=== PATIENT | female | born 1995 | race African-American/Black ===

== ENCOUNTER 2016-09-02 17:12 | Emergency (ER) | payer SELFPAY ==
[2016-09-02 17:22] VITALS: BP 135/86
--- NOTE | 2016-09-02 18:36 | UC ---
Throat Pain/Nasal Florecita HPI - HPI Summary HPI Summary: 1) ST, nasal florecita, cough starting about a week ago. Is feeling worse since last night, especially with taste of sputum, RESTREPO, and feeling fatigued. Denies fever, having mild wheezing. 2) Has noticed marked worsening with eczema in recent weeks despite using eucerin, coconut oil, humidifiers and trying to do everything she can to care for her skin. - History of Current Complaint Chief Complaint: UCRespiratory Stated Complaint: RESP ISSUE Time Seen by Provider: 09/02/16 18:01 Hx Obtained From: Patient Hx Last Menstrual Period: 08/06/16 ?: No Onset/Duration: Gradual Onset, Lasting Days Severity: Mild Cough: Productive Associated Signs & Symptoms: Positive: Wheezing, Sinus Discomfort, Nasal Discharge. Negative: Fever, Vomiting, Rash - Allergies/Home Medications Allergies/Adverse Reactions: Allergies Allergy/AdvReac Type Severity Reaction Status Date / Time No Known Allergies Allergy Verified 11/22/12 13:02 PMH/Surg Hx/FS Hx/Imm Hx Endocrine History Of: Denies: Diabetes, Thyroid Disease Cardiovascular History Of: Denies: Cardiac Disorders, Hypertension Respiratory History Of: Reports: Asthma Denies: COPD GI/ History Of: Denies: Ulcer - Surgical History Surgical History: None - Family History Known Family History: Positive: Respiratory Disease - asthma - Social History Lives: Alone Alcohol Use: None Substance Use Type: None Smoking Status (MU): Never Smoked Tobacco Review of Systems Constitutional: Negative Skin: Negative Eyes: Negative ENT: Sore Throat, Nasal Discharge Respiratory: Cough Cardiovascular: Negative Gastrointestinal: Negative Genitourinary: Negative Motor: Negative Neurovascular: Negative Musculoskeletal: Negative Neurological: Negative Psychological: Negative All Other Systems Reviewed And Are Negative: Yes Physical Exam Triage Information Reviewed: Yes Appearance: Well-Appearing, No Pain Distress, Well-Nourished Vital Signs: Initial Vital Signs Temp 98.9 F 09/02/16 17:18 Pulse 76 09/02/16 17:18 Resp 16 09/02/16 17:18 BP 135/86 09/02/16 17:18 Pulse Ox 99 09/02/16 17:18 Vital Signs Reviewed: Yes Eye Exam: Normal Eyes: Positive: Conjunctiva Clear ENT: Positive: Hearing grossly normal, Pharynx normal, Nasal congestion, TMs normal. Negative: Tonsillar swelling, Tonsillar exudate Dental Exam: Normal Neck exam: Normal Neck: Positive: Supple, Nontender, No Lymphadenopathy Respiratory Exam: Normal Respiratory: Positive: Chest non-tender, Lungs clear, Normal breath sounds, No respiratory distress, No accessory muscle use Cardiovascular Exam: Normal Cardiovascular: Positive: RRR, No Murmur Abdominal Exam: Normal Musculoskeletal Exam: Normal Neurological Exam: Normal Neurological: Positive: Alert Psychological Exam: Normal Skin Exam: Other - round scaled excoriated areas on arms, back of neck, shoulders, backs of knees Throat Pain/Nasal Course/Dx - Differential Dx/Diagnosis Provider Diagnoses: URI. sinusitis. eczema Discharge - Discharge Plan Condition: Stable Disposition: HOME Prescriptions: Albuterol HFA INHALER* [Ventolin HFA Inhaler*] 1 - 2 puff INH Q4H PRN #1 mdi PRN Reason: wheeze, cough Azithromycin TAB* [Zithromax TAB*] 250 mg PO SEE INSTRUCTIONS #6 tab Triamcinolone 0.5% CREAM(NF) [Triamcinolone 0.5% CREAM*] 1 applic TOPICAL BID # 30 gm Patient Education Materials: Rhinosinusitis (ED), Eczema (ED) Referrals: Davon Guerrero MD [Medical Doctor] - Additional Instructions: WE DISCUSSED, YOU DO NOT HAVE STRONG SIGNS OF A BACTERIAL ILLNESS AT THIS TIME AND SO DO NOT NEED TO START THIS ANTIBIOTIC. PLEASE TAKE THE ENTIRE COURSE OF ANTIBIOTICS IF YOU DEVELOP FEVER OR HAVE SUDDEN WORSENING AT ANY TIME, OR IF YOU FAIL TO HAVE SOME IMPROVEMENT IN THE NEXT 3 DAYS. You can arrange to follow up with the architect internship listed here for your food allergies and, possibly, your eczema.
== END 2016-09-02 18:31 | disposition home or self-care (01) ==
LOC: UCEAST 17:12
DX: J01.90 Acute sinusitis, unspecified (principal); L30.9 Dermatitis, unspecified; J45.909 Unspecified asthma, uncomplicated
CPT/HCPCS: 99211; G0463

== ENCOUNTER 2018-06-15 09:52 | Emergency (ER) | payer BC, OTHER ==
[2018-06-15 11:03] LABS: Influenza A Molecular POSITIVE (Negative)
--- NOTE | 2018-06-15 11:24 | UC ---
FLU HPI - HPI Summary HPI Summary: 23 yo female presents with body aches, fatigue, sinus congestion, and dry cough for the last 2 days. Has been taking mucinex and sudafed with no relief. 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 Denies fever, chills, SOB, abdominal pain, n/v. She is also requesting a refill on her albuterol inhaler for prn asthma and her kenalog cream for eczema. - History of Current Complaint Chief Complaint: UCRespiratory Stated Complaint: FLU LIKE SYMP Time Seen by Provider: 06/15/18 10:47 Hx Obtained From: Patient Hx Last Menstrual Period: 05/01/18 Onset/Duration: Sudden Onset Severity Currently: Mild Severity Initially: Mild Pain Intensity: 2 Pain Scale Used: 0-10 Numeric - Allergy/Home Medications Allergies/Adverse Reactions: Allergies Allergy/AdvReac Type Severity Reaction Status Date / Time No Known Allergies Allergy Verified 06/15/18 10:42 Home Medications: Home Medications Multivitamins/Minerals TAB* [Theragran/minerals TAB*] 1 tab PO DAILY 06/15/18 [ History Confirmed 06/15/18] PMH/Surg Hx/FS Hx/Imm Hx - Additional Past Medical History Additional PMH: Asthma Eczema - Surgical History Surgical History: None - Family History Known Family History: Positive: Respiratory Disease - asthma - Social History Occupation: Employed Full-time Lives: With Family Alcohol Use: Rare Substance Use Type: None Smoking Status (MU): Never Smoked Tobacco Review of Systems All Other Systems Reviewed And Are Negative: Yes Constitutional: Positive: Fatigue, Other - Body aches Skin: Positive: Other - Eczema Eyes: Positive: Negative ENT: Positive: Nasal Discharge, Sinus Congestion, Sinus Pain/Tenderness Respiratory: Positive: Cough Cardiovascular: Positive: Negative Gastrointestinal: Positive: Negative Neurovascular: Positive: Negative Neurological: Positive: Negative Psychological: Positive: Negative Physical Exam - Summary Physical Exam Summary: GENERAL: NAD. WDWN. No pain distress. SKIN: No rashes, sores, lesions, or open wounds. HEENT: Head: AT/NC Eyes: EOM intact. Conjunctiva clear without inflammation or discharge. Ears: Hearing grossly normal. TMs intact, no bulging, erythema, or edema. Nose: Nasal mucosa pink and moist. NTTP maxillary and frontal sinus. Throat: Posterior oropharynx without exudates, erythema, or tonsillar enlargement. Uvula midline. NECK: Supple. Nontender. No lymphadenopathy. CHEST: CTAB. No r/r/w. No accessory muscle use. Breathing comfortably and in no distress. CV: RRR. Without m/r/g. Pulses intact. Cap refill <2seconds NEURO: Alert. PSYCH: Age appropriate behavior. Triage Information Reviewed: Yes Vital Signs: Initial Vital Signs Temp 98.8 F 06/15/18 10:38 Pulse 92 06/15/18 10:38 Resp 16 06/15/18 10:38 BP 132/75 06/15/18 10:38 Pulse Ox 100 06/15/18 10:38 Laboratory Tests 06/15/18 10:59 Influenza A (Rapid) Positive A Vital Signs Reviewed: Yes Flu Course/Dx - Course Course Of Treatment: POC flu positive. Rx for tamiflu. According to [facility] policy - employees are required to be off of work for 1 week from the onset of flu symptoms and positive flu test, therefore note provided. - Differential Dx/Diagnosis Provider Diagnosis: Influenza Discharge - Sign-Out/Discharge Documenting (check all that apply): Patient Departure All imaging exams completed and their final reports reviewed: No Studies - Discharge Plan Condition: Stable Disposition: HOME Prescriptions: Albuterol HFA INHALER* [Ventolin HFA Inhaler*] 1 puff INH Q6H PRN #1 mdi PRN Reason: Sob/Wheezing Oseltamivir CAP* [Tamiflu CAP*] 75 mg PO BID #10 cap Triamcinolone 0.5% CREAM(NF) [Triamcinolone 0.5% CREAM*] 1 applic TOPICAL BID # 1 tube Patient Education Materials: Influenza (DC) Forms: *Work Release Referrals: Nydia Rivera MD [Primary Care Provider] - Additional Instructions: If you develop a fever, shortness of breath, chest pain, new or worsening symptoms - please call your PCP or go to the ED. Rest and drink plenty of fluids! May take tylenol/ibuprofen for any fever or discomfort - Billing Disposition and Condition Condition: STABLE Disposition: Home - Attestation Statements Provider Attestation: Per institutional requirements, I have reviewed the chart, however, I was not consulted specifically or made aware of this patient by the midlevel provider. I did not personally evaluate, interact with , or disposition this patient.
[2018-06-15 12:14] VITALS: BP 129/67
== END 2018-06-15 11:35 | disposition home or self-care (01) ==
LOC: UCEAST 09:52
DX: J10.1 Influenza due to other identified influenza virus with other respiratory manifestations (principal)
CPT/HCPCS: 99212; G0463

== ENCOUNTER 2018-08-14 17:59 | Inpatient (IN) | payer BC ==
--- OUTSIDE RECORDS SUMMARY | 2018-08-14 18:07 | XMS REPORT | Continuity of Care Document ---
:1995 External Reference #:[id number] Author Name Qing Hunter Care Team Providers Name Role Phone Vonnie Bunch MD Primary Care Physician Unavailable Payers Date Identification Numbers Payment Provider Subscriber Policy Number: [id number] 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 Tobacco Use Start: Unknown Never Smoked Cigarettes ETOH Use Denies alcohol use Recreational Drug Use Denies Drug Use Tobacco Use Start: Unknown Patient has never smoked Smoking Status Reviewed: 08/04/18 Patient has never smoked Exercise Type/Frequency Exercises regularly Seat Belt/Car Seat Always uses seat belt Currently Active Patient is currently sexually active Contraceptive Methods None STD's No STD History Allergies, Adverse Reactions, Alerts Description No Known Drug Allergies Medications Medication Date Status Form Strength Qnty SIG Indications Ordering Provider Sertraline HCL Active Unknown Loratadine Active Unknown Immunizations Description No Information Available Vital Signs Date Vital Result Comment 08/04/2018 1:19pm Last Menstrual Period [id number] 0 Parity 0 Results Description No Information Available Procedures Description No Information Available Encounters Description No Information Available Plan of Treatment No Information Available
--- NOTE | 2018-08-14 18:44 | ED ---
Psychiatric Complaint - History Of Current Complaint Chief Complaint: EDMentalHealth Time Seen by Provider: 08/14/18 18:41 Hx Last Menstrual Period: 05/01/18 - Allergies/Home Medications Allergies/Adverse Reactions: Allergies Allergy/AdvReac Type Severity Reaction Status Date / Time No Known Allergies Allergy Verified 06/15/18 10:42 PMH/Surg Hx/FS Hx/Imm Hx Endocrine/Hematology History: Denies: Hx Diabetes, Hx Thyroid Disease Cardiovascular History: Denies: Hx Hypertension Respiratory History: Reports: Hx Asthma Denies: Hx Chronic Obstructive Pulmonary Disease (COPD) GI History: Denies: Hx Ulcer - Cancer History Cancer Type, Location and Year: anemia Infectious Disease History: No Infectious Disease History: Denies: Hx Clostridium Difficile, Hx Hepatitis, Hx Human Immunodeficiency Virus (HIV), Hx of Known/Suspected MRSA, Hx Shingles, Hx Tuberculosis, Hx Known/ Suspected VRE, Hx Known/Suspected VRSA, History Other Infectious Disease, Traveled Outside the [place] in Last 30 Days - Family History Known Family History: Positive: Respiratory Disease - asthma - Social History Alcohol Use: Rare Substance Use Type: Reports: None Smoking Status (MU): Never Smoked Tobacco Physical Exam Vital Signs On Initial Exam: Initial Vitals Temp Pulse Resp BP Pulse Ox 98.8 F 93 18 127/77 100 08/14/18 18:00 08/14/18 18:00 08/14/18 18:00 08/14/18 18:00 08/14/18 18:00 Diagnostics - Vital Signs Vital Signs Temp Pulse Resp BP Pulse Ox 08/14/18 18:00 98.8 F 93 18 127/77 100 - Laboratory Lab Statement: Any lab studies that have been ordered have been reviewed, and results considered in the medical decision making process. Discharge - Discharge Plan Referrals: Nydia Rivera MD [Primary Care Provider] -
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
[2018-08-15] MEDS ORDERED: Al Hydrox/Mg Hydrox/Simet LIQ* 30 ML UDC PO PRN (06:11)
[2018-08-15] MEDS ORDERED: Acetaminophen TAB* 325 MG PO PRN (06:11)
[2018-08-15] MEDS: Vitamin THERAPEUTIC TAB PO SCH (09:15)
[2018-08-15 20:49] LABS: Urine Appearance Clear; Urine Bacteria Absent (Absent); Urine Bilirubin Negative (Negative); Urine Blood 1+ (Negative); Urine Color Yellow; Urine Glucose Negative (Negative); Urine Ketones Trace (Negative); Urine Nitrite Negative (Negative); Urine Protein Negative (Negative); Urine Red Blood Cell 1+(3-5/hpf) (Absent); Urine Specific Gravity 1.016 (1.010-1.030); Urine Urobilinogen Negative (Negative); Urine White Blood Cell Trace(0-5/hpf) (Absent)
[2018-08-15] MEDS: QUEtiapine TAB* 25 MG PO SCH (21:58)
[2018-08-15] MEDS: Lithium Carbonate TAB* 300 MG PO SCH (22:01)
--- NOTE | 2018-08-16 02:49 | HP ---
HISTORY AND PHYSICAL: DATE OF ADMISSION: 08/15/18 IDENTIFYING DATA: Maria Luz is a 23-year-old , employed, -[place] female who was referred to this hospital by her primary care physician, Dr. Bunch, for treatment of suad and she was admitted on voluntary status. CHIEF COMPLAINT: "I had been feeling manic!" HISTORY OF PRESENT ILLNESS: The patient relates having a history of depression and anxiety. She was started on sertraline [address] Bunch on . Dose was increased to 75 mg daily on 08/10/18. The patient reports that starting last she started experiencing symptoms of insomnia. She estimates going about 32 hours without sleep, yet she felt amazing and productive. She did things there were out of character such as inviting people to her house, smoking more marijuana than she normally does, she thought about buying stuff for her cat on the internet for hundreds of dollars, but was able to catch herself before actually completing any purchase. She states she felt hypersexual and she had strong sexual urges for a male friend of hers and her 's. She was at home, cleaning yesterday, and her whom she is from and who is in [place] sent her a screenshot of symptoms of suad and she realized that she had all the symptoms. She drove herself to her primary care physician, Dr. Bunch, who was not comfortable treating her as an outpatient for suad and instructed her to coming to the hospital for treatment. The patient describes stressors of marital issues. Her is currently in [place] with his family addressing his own mental health issues. The patient is unhappy in her marriage, she is somewhat resentful that she is the only breadwinner and that her has not been able to share the financial burden because he is not functional. The patient also describes disappointment that she was discharged from [employer], less the 3 months after enlisting, because of a stress fracture. She had dreamt for years of making a career in the [employer]. REVIEW OF PSYCHIATRIC SYMPTOMS: The patient endorses a history of depressive episodes lasting weeks to months at a time, with sad mood, decreased interest, hypersomnia, decreased appetite, feelings of guilt, hopelessness, helplessness, and worthlessness, impaired attention and concentration, and difficulty functioning at work, excessive worrying, irritability, muscle tension and recurring panic attacks. She denies obsessive thoughts, compulsive rituals, symptoms of eating disorder, previous diagnoses of ADHD or learning disorder. The patient denies any history of trauma or PTSD symptoms. She reports suffering from night terrors. PAST PSYCHIATRIC HISTORY: This is her first inpatient psychiatric admission. The patient saw therapist, Ness Steward Psy.D. for about a month, from May to June 2018, before she discontinued because she did not find the therapist was a good match. She is currently on a waiting list to see Dr. Thien Johnson. SUICIDE/HOMICIDE HISTORY: The patient denies any history of self injury. She denies previous rubens suicide attempt, but reported that last year, in the spring, she was very depressed and she had thoughts of driving her car into an electric poll before pulling over and experiencing a panic attack. LEGAL HISTORY: The patient denies. PAST MEDICAL HISTORY: The patient denies any active medical problems, any history of head trauma with loss of consciousness, seizures or surgeries. She is [facility] at [facility] by Dr. Bunch. Menarche was at age 10. FAMILY HISTORY: Family history of bipolar disorder in patient's maternal half- sister. The patient's mother suffered from depression and was addicted to crack cocaine and heroin and in her 40s. The patient is not aware of any family history of completed suicide. SUBSTANCE ABUSE HISTORY: The patient admits to smoking small amount of marijuana daily. She denies the use of alcohol, other illicit drugs or misuse of prescribed medication. PERSONAL AND SOCIAL HISTORY: The patient was born in [place], [place]. She is the third of 6 half-siblings (all had different fathers). Her mother was actively using substance and left her and her siblings in the care of their maternal grandmother. The patient was placed in foster care at age 2 and was formally adopted at age 5. The adoptive home was a difficult environment because of other adopted siblings with special needs . She graduated from high school. She attended a [employer] in [place] for 3 years, working towards a major in Biology. She dropped out after her lacho year because she had her first depressive episode and did not really like the environment. The patient in November 2016, and she enlisted in the [employer] on 02/25/17. During her initial training, she suffered a stress fracture in her left knee and was discharged on 05/07/17, shattering her lifelong dream of making a career in the [employer]. 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 She has no children. She reports being unhappy in her current marriage. The patient describes herself as agnostic. She reports struggling financially as the sole bread winner. She has her own apartment in [place], [place]. MENTAL STATUS EXAMINATION: Finds a tall, averagely built 23-year-old - [place] female, with her hair cut short, with rimmed glasses and several ear studs. She is well groomed, casually dressed. She makes good eye contact. She presents as pleasant and cooperative. Speech is pressured. Her affect is expansive. Mood is euphoric. Thought process is over-inclusive with some evidence of grandiosity. She avidly denies suicidal or homicidal ideation or urges to self-mutilate and she contracts for safety. Insight and judgment are impaired. Impulse control fair in this setting. She is alert. She is oriented to time, place, and person. Attention, memory, and concentration are all fair. Fund of knowledge is adequate. Intelligence is estimated to be in the normal average range. REVIEW OF MEDICAL SYMPTOMS: Negative. PHYSICAL EXAMINATION GENERAL: The patient is an averagely built 23-year-old black woman, who does not appear to be in any acute physical distress. He is alert and oriented x3. VITAL SIGNS: At admission blood pressure is 127/77, pulse is 93, respirations 18, temp 98.8. SKIN: Skin texture, turgor, and pigmentation are within normal limits. HEENT: Head atraumatic, normocephalic, symmetrical. Eyes: PERRLA. Tympanic membranes intact. Sclerae nonicteric. Conjunctivae clear. NECK: Trachea midline, freely mobile. No cervical lymphadenopathy. No nuchal rigidity. LUNGS: Clear to auscultation bilaterally. HEART: Regular rate and rhythm. S1 and S2. No murmur, gallops or rubs. BREAST EXAM: Not performed. ABDOMEN: Soft, nontender. No masses, organomegaly or rebound tenderness. No scars noted. Active bowel sounds in all 4 quadrants. EXTREMITIES: No pain or limitation in the range of movement. Pulses are equal and adequate in all 4 extremities. NEUROLOGIC: Cranial nerves II through XII are intact. Cerebellar function is intact. Muscle strength grade is 5/5 in all 4 extremities. GENITAL EXAM: Not performed. RECTAL EXAM: Not performed. STRUCTURAL EXAM: The patient was examined in both supine and upright positions. No gross AP or lateral asymmetry. Gait and movement are within normal limits. DIAGNOSTIC STUDIES/LAB DATA: Labs are pending. SUMMARY: First inpatient psychiatric admission for this 23-year-old female with history of depression and anxiety, no current outpatient therapy, who started experiencing manic symptoms after her sertraline was increased recently. Her medical history is unremarkable. There is a family history of bipolar 2 in the patient's half-sister and depression and addiction to cocaine and heroin in the patient's biological mother. No family history of completed suicide. The patient describes stressors of marital and financial difficulties. DIAGNOSTIC IMPRESSIONS: 1. Bipolar 1 disorder, current episode manic, severe, without psychotic features. 2. Generalized anxiety disorder. TREATMENT PLAN: Admit to mental health unit, 15-minute checks, full code status. Legal status is voluntary. Initiate comprehensive milieu, individual and group psychotherapeutic supports. The patient gave informed consent for trial of lithium 300 mg b.i.d. and Seroquel 50 mg at bedtime to target her insomnia and manic symptoms after hearing of the indications, risks, benefits, and alternatives. The patient will also be asked to complete psychological testing while admitted. Discharge planning will involve connecting her to outpatient psychiatric providers to provide therapy and to manage her medications [id number]/[facility] #: [id number] MTDD
[2018-08-16] MEDS: Lithium Carbonate TAB* 300 MG PO SCH ×2 (09:12→22:31)
[2018-08-16] MEDS: Vitamin THERAPEUTIC TAB PO SCH (09:12)
[2018-08-16] MEDS ORDERED: LORazepam TAB(*) 1 MG ONE (12:13)
[2018-08-16] MEDS ORDERED: LORazepam TAB(*) 1 MG PO ONE (13:00)
[2018-08-16] MEDS: QUEtiapine TAB* 25 MG PO SCH (22:31)
[2018-08-17] MEDS: Lithium Carbonate TAB* 300 MG PO SCH ×2 (08:50→21:28)
[2018-08-17] MEDS: Vitamin THERAPEUTIC TAB PO SCH (08:50)
--- NOTE | 2018-08-17 16:53 | PN ---
Subjective - Subjective Date of Service: 08/17/18 Service Type: 06217 Hosp care 25 min moderate complexity Subjective: Patient presents with rapid speech and flight of ideas, somewhat grandiose. She states she experienced hallucinations and paralysis after first dose of lithium. She further describes paralysis as feeling as though a woman was lying on her. She states that lorazepam was helpful with above. She denies events from subsequent doses of lithium. She states sensing pressure behind eyes when feeling depressed. She describes conflict about continuing relationship with . She expresses motivation to pursue discharge as soon as possible. Encouraged to complete MMPI. Objective - General Observations Appearance: Neat Appears Stated Age: Yes Stature: WNL Posture: WNL Eye Contact: Average Behavior/Activity: Accelerated - Interaction Observations Attitude Towards Examiner: Cooperative, Anxious Stated Mood: Elevated Speech Pattern/Tone: Clear, Normal Volume, Pressured Thought Process: Filght of Ideas, Racing Perception: WNL Thought Content: Grandiose Hallucination Type: Denies Delusion Type: Denies - Cognitive Function Orientation: A&O x 4 Level of Consciousness: Alert Cognition: WNL Estimated Intelligence: Normal Insight: WNL Judgment Within Normal Limits: Yes Ability to Make Reasonable Decisions: Mildly Impaired - Medication Compliance Cooperative with Inpatient Medication Regimen: Yes - Group Participation Participates in Group Activities: Yes Assessment - Assessment Merits Inpatient Hospitalization: For Immediate Safety, For Stabilization, Diagnosis Determination, Consolidate Improvements, For Discharge Planning Inpatient DSM-V Dx: F31.61 Clinical Impression: 23yo female with chaotic early morning who presented to ED with suad after initial trial of SSRI. She merits hospitalization for immediate safety and stabilization. Plan - Plan Treatment Plan: Name: CHRIS BYRD Birthdate: 1995 [id number] continue acute intensive psychiatric treatment. continue current medications. awaiting psychological testing and laboratory data. Medications: Current Medications Acetaminophen (Tylenol Tab*) 650 mg PO Q4H PRN PRN Reason: PAIN or TEMP > 101 F Last Admin: 08/15/18 20:32 Dose: 650 mg Al Hydrox/Mg Hydrox/Simethicone (Maalox Plus*) 30 ml PO Q4H PRN PRN Reason: INDIGESTION Porum Carbonate (Porum Carbonate Tab*) 300 mg PO BID DANIEL Last Admin: 08/17/18 08:50 Dose: 300 mg Multivitamins (Theragran Tab*) 1 tab PO DAILY [facility] Last Admin: 08/17/18 08:50 Dose: 1 tab Quetiapine Fumarate (Seroquel Tab*) 50 mg PO BEDTIME [facility] Last Admin: 08/16/18 22:31 Dose: 50 mg - Discharge Plan Discharge Plan: Inpatient Hospitalization
[2018-08-17] MEDS: QUEtiapine TAB* 25 MG PO SCH (21:29)
[2018-08-18 07:41] VITALS: BP 118/73
[2018-08-18] MEDS: Vitamin THERAPEUTIC TAB PO SCH (08:48)
[2018-08-18] MEDS: Lithium Carbonate TAB* 300 MG PO SCH (08:48)
--- NOTE | 2018-08-18 15:05 | DCNOTE ---
Subjective - Subjective Service Types: 79507 Hosp FL Day Mgmt simple under 30 min Discharge Date: 08/18/18 Subjective: Patient reports she woke in the middle of the night due to familiarity with [facility] staff. She states she was able to return to sleep without difficulty. She expressed desire to be discharged today. She is well related and denies Si or passive wish. She reports feeling relieved to have understanding of diagnosis of bipolar disorder. Objective - Appearance Appearance: Well Developed/Nourished Dysmorphic Features: No Hygiene: Normal Grooming: Well Kept - Behavior Psychomotor Activities: Normal Exhibits Abnormal Movement: No - Attitude and Relatedness Attitude and Relatedness: Cooperative Eye Contact: Good - Speech Quality: Unpressured Latencies: Normal Quantity: Appropriate - Mood Patient's Decription of Mood: "Good" - Affect Observed Affect: Good Affect Consistent with: Euthymia - Thought Process Patient's Thought Process: Coherent, Goal Directed Thought Content: No Passive Wish, No Suicidal Planning, No Homicidal Ideation, No Paranoid Ideation - Sensorium Experiencing Hallucinations: No, Sensorium is Clear Type of Hallucinations: Visual: No, Auditory: No, Command: No - Level of Consciousness Level of Consciousness: Alert Orientation: Yes Intact, Yes Orientated to Time, Yes Orientated to Place, Yes Orientated to Person - Impulse Control Impulse Control: Intact - Insight and Judgement Insight and Judgement: Good - Group Participation Particating in Group Activities: Yes - Medication Management Medication Management Adherence: Yes DC Assessment - Assessment Clinical Impression: 23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 She has tolerated onset of mood stabilizer and small dose of antipsychotic for sleep and stabilized in this setting. Merits Inpatient Hospitalization: No Clear for Discharge: Adequate Clinical Respons, Acceptable Safety Profile Inpatient DSM-V Dx: F31.61 Discharge Planning - Discharge Planning Discharge Plan: Outpatient Follow Up Outpatient Program: Private Clinician(s) Recommendations for Continuing Care: Medication Management, Psychotherapy, Routine Metabolic Monitoring, Therapeutic Drug Levels, Primary Care Followup Medications: Current Medications Princess Anne Carbonate (Princess Anne Carbonate Tab*) 300 mg PO BID [facility] Last Admin: 08/18/18 08:48 Dose: 300 mg Quetiapine Fumarate (Seroquel Tab*) 50 mg PO BEDTIME [facility] Last Admin: 08/17/18 21:29 Dose: 50 mg Discharge Planning: Prescriptions provided for discharge [x] Yes [] No Follow up care details as per social work arrangements: [facility] Thien Johnson, Trena Patient response to discharge plan: [x] eager for discharge [x] agreeable with discharge plan [] ambivalent about discharge [] disagrees with discharge today
--- NOTE | 2018-08-19 12:00 | CONS ---
PSYCHOLOGICAL REPORT: DATE OF CONSULTATION: 08/17/18 PROCEDURE CODE: [id number]. REASON FOR REFERRAL: Maria Luz was referred for personality testing secondary to concerns regarding possible manic or hypomanic episode with secondary concerns regarding presence and severity of depression. TEST ADMINISTERED: Maria Luz completed the [place] Multiphasic Personality Interventory-2 (MMPI-2), and was given individual feedback and was also seen in the context of cognitive behavioral group psychotherapy on 2 occasions led by this underwriter solicitation director. RELEVANT HISTORY: Maria Luz was encouraged to seek inpatient treatment by her primary care physician after presenting there with symptoms consistent with suad. She has historically been treated for depression and anxiety and had been started on sertraline [address] Bunch last month. It had recently been increased to daily titration of 75 mg last week. The patient describes beginning prior to admission, she began experiencing symptoms of insomnia, describing going some 32 hours without sleep but felt productive and had expansive mood. She was doing things out of character and her who is currently separate from her and living in [place] encouraged her to seek treatment for hypomania. Maria Luz describes other characteristic symptoms of hypomania such as an interest in buying items for her cat, which would have numbered in hundreds of dollars if she actually complete the purchases but did not do so and also describes increased sex drive. Maria Luz describes historical difficulties with depression dating back few years ago, where she had difficulty completing undergraduate studies and eventually dropped out and listed in the [employer] for period of time. She experienced knee injury, which precipitated her discharge from the [employer] and then eventually her current . Maria Luz describes being quite unhappy in her marriage, describing her 's tumultuous career interest and developments which have not panned out to productive career. He currently is living in [place] with his family of origin and Maria Luz describes ambivalence about what to do about their marriage. 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 Although, she describes good work adjustment, she is concerned about working the cook night as it impairs sleep hygiene at times. Maria Luz describes various interest perhaps in between the college to complete her degree and particularly discussed prospects of going into psychology or some form of counseling with this underwriter solicitation director. Regardless, Maria Luz currently describes prosocial goals and interest with her most acute sense of duress emanating from her ambivalence about how to deal with her current marital status. She feels a sense of guilt about not wanting to remain but describes poor marital adjustment and dissatisfaction with the prospects of trying to improve upon her relationship with her currently. Maria Luz was able to discuss prospects of bipolar 1 disorder with good insight with this underwriter solicitation director, expressing concerns that she could experience increasing symptoms that is leading to more persisting difficulties. This underwriter solicitation director discussed the importance of early treatment of the disorder so as to avoid such bad outcome. TEST RESULTS: Maria Luz's current MMPI protocol supports concerns relating to bipolar 1 disorder. She scores relatively low scores on the depressive scale and scores very highly on the hypomania scale (T=80) as well as also experiencing high score on the schizophrenia scale (T=90). As Maria Luz is clear and coherent in conversation, although may have higher than volume level speech currently, there are no concerns regarding psychotic range of function. She is able to discuss current symptoms in a clear and concise fashion and also asked appropriate questions and expresses concerns regarding possible progression of symptomatology. Her discussion of expansive mood and hypersexuality clearly are felt to be symptomatic of hypomanic experience and not typical of her baseline. IMPRESSIONS AND RECOMMENDATIONS: There are ongoing concerns regarding the affect of instability with Maria Luz, especially secondary to her historical difficulties with depression. Her current symptoms may have been exacerbated by attempts to treat depression with an increase in serotonin as a concern. Maria Luz describes good insight regarding her feelings and historical difficulties in the context of her marriage and impresses as beginning to formulate a plan forward from here. She describes concerns regarding the possibility of developing more persisting and severe symptoms with good insight and discusses how the experience of suad can be quite seductive at times in terms of feeling positive energy and good about herself and her prospects. This was discussed in the context of paradoxical illness where people are reluctant to treat symptoms secondary to the periodic euphoria that suad can bring. Presently, Maria Luz presents with good affect and is well related to staff and peers. She describes benefitting from programming despite her initial frustrations as she was initially hospitalized over the course of her weekend where she describes not receiving much individualized attention. However, she quickly consolidated with discussion with professional staff and expressed safety and cessation of significant symptomatology. Diagnostic impression supports bipolar 1 disorder, current episode manic, severe, without psychotic features. Maria Luz jeffery as good candidate to engage in recommended outpatient treatment both in terms of compliance with recommended medication as well as attending counseling sessions. [id number]/[facility] #: [id number] ROSE
--- NOTE | 2018-08-19 23:44 | DS ---
CC: [facility]; [facility]; Thien Johnson PSY.D * DISCHARGE SUMMARY: DATE OF ADMISSION: 08/15/18 DATE OF DISCHARGE: 08/18/18 SUPERVISING PSYCHIATRIST: Jem Wooten MD* (dictated by DAYO Dominguez) . DIAGNOSIS: Bipolar I disorder, most recent episode manic, severe, without psychotic features. CONDITION AT THE TIME OF DISCHARGE: Improved. The patient is calm and had behavioral control. She reports much improvement in mood. She denies hypomania. She has been safe and in behavioral control. She tolerated current medications. She is being discharged to home and expresses agreement to be discharged today. She denies SI or passive wish. She reports sleeping well. She states that she awoke in the middle of the night due to with nocturnal staff. She states she was able to return to sleep without difficulty. She reports a sense of feeling relieved to have an understanding of diagnosis of bipolar disorder. MENTAL STATUS EXAM: The patient is a 23-year-old black female with short dark hair, large rimmed glasses. She is well groomed, casually dressed in her own clothing. She is pleasant and cooperative. The patient is alert and oriented x3. Eye contact is good. Speech is normal in rate, rhythm, and volume, spontaneous. Mood is euthymic with congruent affect. No abnormal psychomotor activity noted. Thought process is logical, goal directed, and coherent. Thought content is negative for SI, HI or passive wish. She denies auditory or visual hallucinations. She denies delusions and there are no perceptual disturbances noted. Insight and judgement are good. Fund of knowledge is excellent. INSTRUCTIONS GIVEN TO PATIENT: A. Medications: 1. [place] carbonate 300 mg p.o. b.i.d. 2. Quetiapine 50 mg p.o. nightly. B. Diet: Regular. C. Activity: As tolerated. Tobacco cessation is not applicable. Pending labs. [place] level per primary care doctor. D. Followup care: The patient was referred to [facility] for an intake on 08/21/18, at 10:30 a.m. She is awaiting openings with psychologist, Thien Johnson. She will return to primary care provider, Dr. Bunch at [facility], and has an appointment on August 28. E. Substance use followup is not applicable. HOSPITAL COURSE-PART A: Reason for admission: The patient presented to the emergency department, self-referred due to suad after initial trial of an antidepressant. HISTORY OF PRESENT ILLNESS: The patient relates having a history of depression and anxiety. She was started on sertraline [address] Bunch on 06/29/18. The dose was increased to 75 mg on 08/10/18. The patient reports that the following day, she started experiencing symptoms of insomnia. She estimated going about 32 hours without sleep, yet felt amazing and productive. She did things that were out of character such as inviting people to her house, smoking marijuana, and nearly impulsively spending hundreds of dollars before actually completing the purchase. She has felt hypersexual and strong sexual urges for a male friend of hers and her 's. She was at home, cleaning yesterday, and her whom she is from and who is in [place] sent her a screen shot of symptoms of suad and she realized that she had all the symptoms. She drove herself to her primary care physician, Dr. Bunch, and was encouraged to come to the hospital for evaluation. The patient describes stressors of marital issues. Her who is currently in [place] with his family addressing his own mental health issues. The patient is unhappy in her marriage. She is somewhat resentful that she is the only breadwinner and that her has not been able to share the financial burden. She also described disappointment that she was discharged from the [employer] because of a stress fracture, distorted her dream of having a career in the [employer]. HOSPITAL COURSE-PART B: Psychiatric treatment rendered. The patient was admitted to adult behavioral services unit on voluntary status. Code status is full. She was placed on 15-minute checks for safety. She was encouraged to participate in supportive milieu, individual sessions with staff and psychoeducational groups. She gave informed consent for a trial of lithium 300 mg b.i.d. and quetiapine 50 mg at bedtime. We discontinued sertraline. According to the staff, the patient was active and distractible. She was pleasant and cooperative. She was noted to have mood lability at times. After the first dose of lithium, the patient reported feeling paralyzed. She further described this as feeling as though a woman was lying on top of her and she also experienced hallucinations. She states the lorazepam was helpful with the above and denied events from the frequent doses of lithium. She expressed motivation to pursue discharge and was encouraged to complete the MMPI, which she did. According to psychologist, Dr. Romeo Carpenter, the MMPI endorsed hypomania and was consistent with presentation. Please see detailed report by Dr. Romeo Carpenter. On day of discharge, the patient reported much improved sleep through the night before. She presented with less pressured speech and was more organized. She denied SI, HI or . Her impulse control was improved. She initially requested to be discharged the following day, but later in the day, she inquired about leaving. The patient had not received blood work due to labs scheduled on her. She declined offer to remain 1 more night to obtain fasting labs and lithium level the next morning. As her lithium dose is a starting dose of 300 mg, it would be appropriate to wait to see if the dose is changed prior to obtaining lithium level. The patient was eager to be discharged in order to pursue outpatient care and to return to employment. We discussed the effects of shift work on bipolar disorder. The patient reports short-term goal of working overnight shift in the hopes of other educational goals she has. I think that Maria Luz will do very well on an outpatient setting. She was encouraged to call with any questions or concerns after discharge. DANK GAGE, DAYO [id number]/CPS #: [id number] ROSE
== END 2018-08-18 15:48 | disposition home or self-care (01) | DRG 753 ==
LOC: ED 17:59 → BSU 08-15 05:51
PROVIDERS: ADMIT Psychiatry & Neurology Psychiatry; ATTEND Psychiatry & Neurology Psychiatry
DX: F31.13 Bipolar disorder, current episode manic without psychotic features, severe (principal); F41.1 Generalized anxiety disorder; Z81.8 Family history of other mental and behavioral disorders; Z81.3 Family history of other psychoactive substance abuse and dependence
CPT/HCPCS: 81003; 81015; 87086; 99222; 99231; 99238; 99284; A9270-GY

== ENCOUNTER 2018-09-03 02:24 | Emergency (ER) | payer BC ==
--- NOTE | 2018-09-03 03:08 | ED ---
Psychiatric Complaint - HPI Summary HPI Summary: A 23 y/o female presents to [facility] with a chief complaint of having difficulty sleeping for the past three days. She also reports right redness due to allergies. She claims that today at 01:45 she felt depressed with racing thoughts and an overwhelming feeling of dread. She started a second job this week and has only slept 11 hours in the past three days. She believes that she would not be able to sleep if given the chance. On 08/14/18 the patient came to the ED, was admitted on 08/15/18 and discharged 08/18/18 with a diagnosis of Bipolar 1 disorder. The patient reports that she was showing signs of suad. Since being discharged she has been taking Valmeyer and Seroquel. She reports taking half of her dosage of Seroquel. She has been on antidepressants for two months. For her allergies she takes Zyrtec and eye drops. - History Of Current Complaint Chief Complaint: EDMentalHealth Time Seen by Provider: 09/03/18 03:03 Hx Obtained From: Patient Hx Last Menstrual Period: 05/01/18 Onset/Duration: Sudden Onset Timing: Constant Severity Initially: Mild Severity Currently: Mild Aggravating Factor(s): Nothing Alleviating Factor(s): Nothing Associated Signs And Symptoms: Positive: Sleep Disturbance Has Suicidal: Denies: Thoughts Has Homicidal: Denies: Thoughts - Allergies/Home Medications Allergies/Adverse Reactions: Allergies Allergy/AdvReac Type Severity Reaction Status Date / Time No Known Allergies Allergy Verified 06/15/18 10:42 PMH/Surg Hx/FS Hx/Imm Hx Endocrine/Hematology History: Denies: Hx Diabetes, Hx Thyroid Disease Cardiovascular History: Denies: Hx Hypertension Respiratory History: Reports: Hx Asthma Denies: Hx Chronic Obstructive Pulmonary Disease (COPD) GI History: Denies: Hx Ulcer Sensory History: Reports: Hx Contacts or Glasses Denies: Hx Legally Blind, Hx Deafness, Hx Hearing Aid Opthamlomology History: Reports: Hx Contacts or Glasses Denies: Hx Legally Blind Psychiatric History: Denies: Hx Eating Disorder, Hx of Violent Episodes Against Others - Cancer History Cancer Type, Location and Year: anemia - Surgical History Surgery Procedure, Year, and Place: none Infectious Disease History: No Infectious Disease History: Denies: Hx Clostridium Difficile, Hx Hepatitis, Hx Human Immunodeficiency Virus (HIV), Hx of Known/Suspected MRSA, Hx Shingles, Hx Tuberculosis, Hx Known/ Suspected VRE, Hx Known/Suspected VRSA, History Other Infectious Disease, Traveled Outside the [place] in Last 30 Days - Family History Known Family History: Positive: Respiratory Disease - asthma - Social History Alcohol Use: Rare Substance Use Type: Reports: None Smoking Status (MU): Never Smoked Tobacco Review of Systems Negative: Fever Positive: Erythema Psychological: Other - positive: difficulty focusing and sleeping Positive: Depressed, Other - negative: SI/HI All Other Systems Reviewed And Are Negative: Yes Physical Exam - Summary Physical Exam Summary: VITAL SIGNS: Reviewed. GENERAL: Patient is a well-developed and nourished FEMALE who is lying comfortable in the stretcher. Patient is not in any acute respiratory distress. HEAD AND FACE: No signs of trauma. No ecchymosis, hematomas or skull depressions. No sinus tenderness. EYES: PERRLA, EOMI x 2, mild right conjunctival injection, no nystagmus. EARS: Hearing grossly intact. Ear canals and tympanic membranes are within normal limits. MOUTH: Oropharynx within normal limits. NECK: Supple, trachea is midline, no adenopathy, no JVD, no carotid bruit, no c- spine tenderness, neck with full ROM CHEST: Symmetric, no tenderness at palpation LUNGS: Clear to auscultation bilaterally. No wheezing or crackles. CVS: Regular rate and rhythm, S1 and S2 present, no murmurs or gallops appreciated. ABDOMEN: Soft, non-tender. No signs of distention. No rebound no guarding, and no masses palpated. Bowel sounds are normal. EXTREMITIES: FROM in all major joints, no edema, no cyanosis or clubbing. NEURO: Alert and oriented x 3. No acute neurological deficits. Speech is normal and follows commands. SKIN: Dry and warm Psych: not suicidal or homicidal, seems somewhat impulsive. Triage Information Reviewed: Yes Vital Signs On Initial Exam: Initial Vitals Temp Pulse Resp BP Pulse Ox 98.6 F 68 16 145/94 100 09/03/18 02:30 09/03/18 02:30 09/03/18 02:30 09/03/18 02:30 09/03/18 02:30 Vital Signs Reviewed: Yes Diagnostics - Vital Signs Vital Signs Temp Pulse Resp BP Pulse Ox 09/03/18 02:30 98.6 F 68 16 145/94 100 - Laboratory Result Diagrams: 09/03/18 03:45 09/03/18 03:45 Lab Statement: Any lab studies that have been ordered have been reviewed, and results considered in the medical decision making process. Course/Dx - Course Course Of Treatment: A 23 y/o female presents to [facility] with a chief complaint of having difficulty sleeping for the past three days. She also reports right redness due to allergies. The physical exam revealed a mild right conjunctival injection. She is not suicidal or homicidal but seems somewhat impulsive. In the ED course the patient was given Xanax PO. Bloodwork, chemistries, urines and toxicology. Valmeyer 0.58 at 03:45. The patient will be signed out to Dr. Gleason upon shift change pending MHE. - Differential Dx/Clinical Impression Provider Diagnosis: Bipolar disorder - Physician Notifications Discussed Care Of Patient With: Riaz Estrada Time Discussed With Above Provider: 04:50 Instructed by Provider To: Other - recommends keeping the patient in the ED and that Dr. Aleman see the patient in the morning. Discharge - Sign-Out/Discharge Documenting (check all that apply): Sign-Out Patient Signing out patient TO: Salo Gleason - pending MHE Patient Received Moderate/Deep Sedation with Procedure: No - Discharge Plan Condition: Stable Referrals: Vonnie Bunch DO [Primary Care Provider] - - Billing Disposition and Condition Condition: STABLE - Attestation Statements Document Initiated by Konstantinibe: Yes Documenting Scribe: Thien Trujillo Provider For Whom Gayathri is Documenting (Include Credential): Jeremy Evangelista MD Scribe Attestation: Thien Robles scribed for Jeremy Evangelista MD on 09/03/18 at 0603. Scribe Documentation Reviewed: Yes Provider Attestation: The documentation as recorded by the Thien guerrero accurately reflects the service I personally performed and the decisions made by me, Jeremy Evangelista MD Status of Scribe Document: Viewed
[2018-09-03] MEDS ORDERED: ALPRAZolam TAB* 0.5 MG PO ONE (03:24)
[2018-09-03 04:00] LABS: ABS Basophils 0.1 10^3/ul (0-0.2); ABS Eosinophils 0.2 10^3/ul (0-0.6); ABS Lymphocytes 1.4 10^3/ul (1.0-4.8); ABS Monocytes 0.5 10^3/ul (0-0.8); ABS Neutrophils 4.7 10^3/ul (1.5-7.7); Eosinophil % 3.3 %; Hematocrit 37 % (35-47); Hemoglobin 12.4 g/dL (12.0-16.0); Lymphocyte % 20.5 %; Mean Corpuscular HGB Conc 33 g/dL (31-36); Mean Corpuscular Hemoglobin 31 pg (27-31); Mean Corpuscular Volume 93 fL (80-97); Mean Platelet Volume 7.9 fL (7.4-10.4); Platelet Count 239 10^3/uL (150-450); Red Blood Count 3.99 10^6 /uL (3.70-4.87); Red Cell Distribution Width 14 % (10.5-15); White Blood Count 6.9 10^3/uL (3.5-10.8)
[2018-09-03 04:01] LABS: Urine Appearance Clear; Urine Bilirubin Negative (Negative); Urine Blood Negative (Negative); Urine Color Yellow; Urine Glucose Negative (Negative); Urine Ketones Negative (Negative); Urine Nitrite Negative (Negative); Urine Protein Negative (Negative); Urine Specific Gravity 1.009 (1.010-1.030); Urine Urobilinogen Negative (Negative)
[2018-09-03 04:20] LABS: ALT 13 U/L (7-52); AST 20 U/L (13-39); Albumin 4.4 g/dL (3.2-5.2); Albumin/Globulin Ratio 1.7 (1-3); Alkaline Phosphatase 47 U/L (34-104); Anion Gap 4 mmol/L (2-11); Blood Urea Nitrogen 12 mg/dL (6-24); CO2 Carbon Dioxide 26 mmol/L (22-32); Calcium 9.4 mg/dL (8.6-10.3); Chloride 108 mmol/L (101-111); EGFR African American 97.3 (>60); EGFR Non-African American 80.4 (>60); Globulin 2.6 g/dL (2-4); Glucose 93 mg/dL (70-100); Potassium 3.9 mmol/L (3.5-5.0); Sodium 138 mmol/L (135-145)
[2018-09-03 04:26] LABS: Alcohol < 10 mg/dL (<10); Lithium 0.58 mmol/L (0.6-1.2); Salicylate < 2.50 mg/dL (<30)
[2018-09-03 04:27] LABS: HCG Pregnancy < 0.60 mIU/mL
[2018-09-03 04:40] LABS: TSH (Thyroid Stimulating Horm) 2.41 mcIU/mL (0.34-5.60)
[2018-09-03 04:48] LABS: Urine Benzodiazepine Screen None Detected (None Detect); Urine Opiates Screen None Detected (None Detect)
[2018-09-03 05:00] LABS: Acetaminophen < 15 mcg/mL
--- NOTE | 2018-09-03 07:00 | ED ---
Progress - Progress Note Progress Note: RECEIVING SIGN OUT FROM DR. EVANGELISTA AT SHIFT CHANGE PENDING MHE. Pt is a 23 y/o F presenting to ED for MHE for not sleeping and impulsive behavior over the past three days. Denies SI/HI. Course/Dx - Course Course Of Treatment: RECEIVING SIGN OUT FROM DR. EVANGELISTA AT SHIFT CHANGE PENDING MHE. 1143: Per MH gaming commissioner, patient can be discharged home per Dr. Wooten, psych. Dx: bipolar disorder. - Diagnoses Provider Diagnoses: Bipolar disorder Discharge - Sign-Out/Discharge Documenting (check all that apply): Patient Departure - D/C, Receiving Sign-Out Receiving patient FROM: Jeremy Evangelista - pending MHE Patient Received Moderate/Deep Sedation with Procedure: No - Discharge Plan Condition: Stable Disposition: HOME Referrals: Vonnie Bunch DO [Primary Care Provider] - - Billing Disposition and Condition Condition: STABLE Disposition: Home - Attestation Statements Document Initiated by Scribe: Yes Documenting Scribe: Fely Crespo Provider For Whom Konstantinibe is Documenting (Include Credential): Dr. Salo Gleason MD Scribe Attestation: Fely Robles, konstantinibed for Dr. Salo Gleason MD on 09/03/18 at 1210. Scribe Documentation Reviewed: Yes Provider Attestation: The documentation as recorded by the Fely guerrero accurately reflects the service I personally performed and the decisions made by me, Dr. Salo Gleason MD Status of Scribe Document: Viewed
[2018-09-03 12:07] VITALS: BP 129/75
== END 2018-09-03 12:14 | disposition home or self-care (01) ==
LOC: ED 02:24
DX: F31.9 Bipolar disorder, unspecified (principal); J45.909 Unspecified asthma, uncomplicated; Z79.899 Other long term (current) drug therapy
CPT/HCPCS: 36415; 80053; 80178; 80307; 80320; 80329; 81003; 84443; 84702; 85025; 99284; A9270-GY; G0480

== ENCOUNTER 2019-05-11 17:38 | Inpatient (IN) | payer BC ==
--- NOTE | 2019-05-11 18:11 | ED ---
Psychiatric Complaint - HPI Summary HPI Summary: This pt is a 24 y/o female presenting to [facility] for a mental health evaluation today. Pt reports she has been having an ongoing psychotic episode where she feels detached from reality. She notes she has delusions and hallucinations. Denies SI or HI. She states she was not feeling well at work today and she left early and drove to [facility]. Patient note she got evaluated by [facility] and was told to come to the ED to get a mental health evaluation from a physician. PMHx: bipolar disorder 1. Patient takes Quetiapine. Denies tobacco use but admits to occasional alcohol use and marijuana use. - History Of Current Complaint Chief Complaint: EDMentalHealth Time Seen by Provider: 05/11/19 17:59 Hx Obtained From: Patient Hx Last Menstrual Period: 05/01/18 Onset/Duration: Lasting Days, Still Present Severity Currently: Moderate Character: Manic Aggravating Factor(s): Nothing Alleviating Factor(s): Nothing Associated Signs And Symptoms: Positive: Hallucinating Has Suicidal: Denies: Thoughts, With A Plan Has Homicidal: Denies: Thoughts, With A Plan - Allergies/Home Medications Allergies/Adverse Reactions: Allergies Allergy/AdvReac Type Severity Reaction Status Date / Time No Known Allergies Allergy Verified 06/15/18 10:42 PMH/Surg Hx/FS Hx/Imm Hx Endocrine/Hematology History: Denies: Hx Diabetes, Hx Thyroid Disease Cardiovascular History: Denies: Hx Hypertension Respiratory History: Reports: Hx Asthma Denies: Hx Chronic Obstructive Pulmonary Disease (COPD) GI History: Denies: Hx Ulcer Sensory History: Reports: Hx Contacts or Glasses Denies: Hx Legally Blind, Hx Deafness, Hx Hearing Aid Opthamlomology History: Reports: Hx Contacts or Glasses Denies: Hx Legally Blind Psychiatric History: Reports: Hx Bipolar Disorder Denies: Hx Eating Disorder, Hx of Violent Episodes Against Others - Cancer History Cancer Type, Location and Year: anemia - Surgical History Surgery Procedure, Year, and Place: none Infectious Disease History: No Infectious Disease History: Denies: Hx Clostridium Difficile, Hx Hepatitis, Hx Human Immunodeficiency Virus (HIV), Hx of Known/Suspected MRSA, Hx Shingles, Hx Tuberculosis, Hx Known/ Suspected VRE, Hx Known/Suspected VRSA, History Other Infectious Disease, Traveled Outside the [place] in Last 30 Days - Family History Known Family History: Positive: Respiratory Disease - asthma - Social History Alcohol Use: Occasionally Substance Use Type: Reports: Marijuana Smoking Status (MU): Never Smoked Tobacco Review of Systems Negative: Fever, Chills ENT: Negative Cardiovascular: Negative Respiratory: Negative Psychological: Other - POSITIVE: psychotic episode, detachment from reality Negative: Other - NEGATIVE: SI or HI All Other Systems Reviewed And Are Negative: Yes Physical Exam - Summary Physical Exam Summary: VITAL SIGNS: Reviewed. GENERAL: Patient is a well-developed and nourished female. Patient is not in any acute respiratory distress. HEAD AND FACE: No signs of trauma. No ecchymosis, hematomas or skull depressions. No sinus tenderness. EYES: PERRLA, EOMI x 2, No injected conjunctiva, no nystagmus. EARS: Hearing grossly intact. Ear canals and tympanic membranes are within normal limits. MOUTH: Oropharynx within normal limits. NECK: Supple, trachea is midline, no adenopathy, no JVD, no carotid bruit, no c- spine tenderness, neck with full ROM. CHEST: Symmetric, no tenderness at palpation LUNGS: Clear to auscultation bilaterally. No wheezing or crackles. CVS: Regular rate and rhythm, S1 and S2 present, no murmurs or gallops appreciated. ABDOMEN: Soft, non-tender. No signs of distention. No rebound, no guarding, and no masses palpated. Bowel sounds are normal. EXTREMITIES: FROM in all major joints, no edema, no cyanosis or clubbing. NEURO: Alert and oriented x 3. Speech is normal and follows commands. No acute neurological deficits. Normal neurological exam. SKIN: Dry and warm GCS: 15 Triage Information Reviewed: Yes Vital Signs On Initial Exam: Initial Vitals Temp Pulse Resp BP Pulse Ox 97.9 F 84 18 141/82 98 05/11/19 17:42 05/11/19 17:42 05/11/19 17:42 05/11/19 17:42 05/11/19 17:42 Vital Signs Reviewed: Yes Procedures - Sedation Patient Received Moderate/Deep Sedation with Procedure: No Diagnostics - Vital Signs Vital Signs Temp Pulse Resp BP Pulse Ox 05/11/19 17:42 97.9 F 84 18 141/82 98 - Laboratory Result Diagrams: 05/11/19 18:52 05/11/19 18:52 Lab Statement: Any lab studies that have been ordered have been reviewed, and results considered in the medical decision making process. Re-Evaluation - Re-Evaluation First Eval Re-Evaluation Time: 18:16 Comment: Pt is medically cleared. Course/Dx - Course Assessment/Plan: This pt is a 24 y/o female presenting to [facility] for a mental health evaluation today. Pt reports she has been having an ongoing psychotic episode where she feels detached from reality. She notes she has delusions and hallucinations. Denies SI or HI. She states she was not feeling well at work today and she left early and drove to [facility]. Patient note she got evaluated by [facility] and was told to come to the ED to get a mental health evaluation from a physician. PMHx: bipolar disorder 1. Patient takes Quetiapine. Denies tobacco use but admits to occasional alcohol use and marijuana use. Blood work w/o a significant abnormality. She is medically cleared. She is waiting for a MHE. Patient is hemodynamically stable and A+O x 3. This patient will be signed out to Dr. Rivera pending mental health evaluation and disposition. - Differential Dx/Clinical Impression Differential Diagnosis/HQI/PQRI: Positive: Acute Psychosis, Anxiety, Depression Provider Diagnosis: Anxiety Discharge ED - Sign-Out/Discharge Documenting (check all that apply): Sign-Out Patient Signing out patient TO: Mia Rivera - pending MHE and dispo - Discharge Plan Condition: Stable Referrals: Vonnie Bunch DO [Primary Care Provider] - - Billing Disposition and Condition Condition: STABLE - Attestation Statements Document Initiated by Scribe: Yes Documenting Scribe: Sylwia Bradford Provider For Whom Gayathri is Documenting (Include Credential): Benji Osuna MD Scribe Attestation: Sylwia Robles scribed for Benji Osuna MD on 05/11/19 at 2154. Scribe Documentation Reviewed: Yes Provider Attestation: The documentation as recorded by the Sylwia guerrero accurately reflects the service I personally performed and the decisions made by me, Benji Osuna MD Status of Scribe Document: Viewed
[2019-05-11 19:02] LABS: ABS Eosinophils 0.1 10^3/ul (0-0.6); ABS Lymphocytes 1.4 10^3/ul (1.0-4.8); ABS Monocytes 0.4 10^3/ul (0-0.8); ABS Neutrophils 3.7 10^3/ul (1.5-7.7); Eosinophil % 1.2 %; Hematocrit 39 % (35-47); Hemoglobin 13.4 g/dL (12.0-16.0); Lymphocyte % 24.5 %; Mean Corpuscular HGB Conc 35 g/dL (31-36); Mean Corpuscular Hemoglobin 33 pg (27-31); Mean Corpuscular Volume 94 fL (80-97); Mean Platelet Volume 7.8 fL (7.4-10.4); Platelet Count 204 10^3/uL (150-450); Red Blood Count 4.11 10^6 /uL (3.70-4.87); Red Cell Distribution Width 13 % (10-15); White Blood Count 5.6 10^3/uL (3.5-10.8)
[2019-05-11 19:17] LABS: ALT 10 U/L (7-52); AST 15 U/L (13-39); Albumin 4.2 g/dL (3.2-5.2); Albumin/Globulin Ratio 1.6 (1-3); Alkaline Phosphatase 42 U/L (34-104); Anion Gap 4 mmol/L (2-11); BUN/Creatinine Ratio 11.6 (8-20); Blood Urea Nitrogen 11 mg/dL (6-24); CO2 Carbon Dioxide 29 mmol/L (22-32); Calcium 9.1 mg/dL (8.6-10.3); Chloride 106 mmol/L (101-111); EGFR Non-African American 71.1 (>60); Globulin 2.6 g/dL (2-4); Glucose 98 mg/dL (70-100); Potassium 3.7 mmol/L (3.5-5.0); Sodium 139 mmol/L (135-145); Total Protein 6.8 g/dL (6.4-8.9)
[2019-05-11 20:06] LABS: TSH (Thyroid Stimulating Horm) 1.06 mcIU/mL (0.34-5.60)
[2019-05-11 20:09] LABS: Acetaminophen < 15 mcg/mL; Alcohol < 10 mg/dL (<10); Salicylate < 2.50 mg/dL (<30)
--- NOTE | 2019-05-11 22:52 | ED ---
Progress - Progress Note Progress Note: Patient is a signout from Dr. Osuna to Dr. Rivera at end of shift at 2200 on , pending MHE. Re-Evaluation - Re-Evaluation First Eval Re-Evaluation Time: 18:16 Comment: Pt is medically cleared. Course/Dx - Diagnoses Provider Diagnoses: Anxiety - Provider Notifications Discussed Care Of Patient With: Edson Melton - Psych Instructed by Provider To: Admit As Inpatient - Dr. Melton suggests admitting patient for psych evaluation. Discharge ED - Sign-Out/Discharge Documenting (check all that apply): Patient Departure - admit, Receiving Sign- Out Receiving patient FROM: Benji Osuna - Patient is a signout from Dr. Osuna to Dr. Rivera at end of shift at 2200 on 05/11/19. All imaging exams completed and their final reports reviewed: Yes - Discharge Plan Condition: Stable Disposition: ADMITTED TO [facility] - Billing Disposition and Condition Condition: STABLE Disposition: Admitted to [facility] - Attestation Statements Document Initiated by Scribe: Yes Documenting Scribe: Dane Craft Provider For Whom Scribe is Documenting (Include Credential): Mia Rivera MD Scribe Attestation: Dane Robles, scribed for Mia Rivera MD on 05/12/19 at 0642. Scribe Documentation Reviewed: Yes Provider Attestation: The documentation as recorded by the scribeDane accurately reflects the service I personally performed and the decisions made by me, Mia Rivera MD Status of Scribe Document: Viewed
[2019-05-12 01:43] LABS: Urine Appearance Cloudy; Urine Bilirubin Negative (Negative); Urine Blood 2+ (Negative); Urine Color Yellow; Urine Glucose Negative (Negative); Urine Ketones Negative (Negative); Urine Nitrite Negative (Negative); Urine Protein Negative (Negative); Urine Specific Gravity 1.013 (1.010-1.030); Urine Urobilinogen Negative (Negative)
[2019-05-12 01:48] LABS: Urine Bacteria Absent (Absent); Urine Red Blood Cell 1+(3-5/hpf) (Absent); Urine Squamous Epithelial Cell Present (Absent); Urine White Blood Cell Trace(0-5/hpf) (Absent)
[2019-05-12 01:58] LABS: Urine Benzodiazepine Screen None Detected (None Detect); Urine Opiates Screen None Detected (None Detect)
[2019-05-12] MEDS ORDERED: Al Hydrox/Mg Hydrox/Simet LIQ* 30 ML UDC PO PRN (05:36)
[2019-05-12] MEDS ORDERED: Acetaminophen TAB* 325 MG PO PRN (05:36)
[2019-05-12] MEDS: Vitamin THERAPEUTIC TAB PO SCH (08:01)
--- NOTE | 2019-05-12 16:11 | PN ---
BSU: Group Therapy Note - Service Type Service Type: [id number] Group Psychotherapy - Medication Education Group: Patient was attentive and participatory in group, and remained in good behavioral control. Patient expressed positive insights regarding relevant treatment interventions. Patient stated understanding of material discussed and had appropriate questions.
--- NOTE | 2019-05-12 16:28 | HP ---
HISTORY AND PHYSICAL: DATE OF ADMISSION: 05/12/19 SUPERVISING PSYCHIATRIST: Dr. Jem Wooten.* (DICTATED BY DANK GAGE NP) CHIEF COMPLAINT: "I have been going into psychotic episodes." HISTORY OF PRESENT ILLNESS: Maria Luz is a 24-year-old , employed -Polish female known to us from previous psychiatric hospitalization in July 2018, where she was originally diagnosed with bipolar I disorder. During that hospitalization, we started lithium and quetiapine. She was referred to her primary care provider while awaiting an intake at [facility]. Yesterday, the patient presented to the emergency department self- referred after a crisis appointment at [facility]. She reports she has been dissociating often and having very prominent delusions. She refers to herself as rapid cycling with periods of depression. She states that she has even had thoughts that she was possessed by a demonic presence. She states that she has been having difficulty sleeping. She doubled up on her quetiapine Friday night and smoked marijuana. She reports feeling altered for a couple of days including auditory, visual and olfactory hallucinations. The patient states that she stopped lithium last September and told her primary care provider after the fact. She sees Dr. Yip, psychiatrist at [facility] and was advised to increase her dose of quetiapine last summer, but chose not to. So, it remains at 100 mg at bedtime. The patient had been working towards divorce when we last knew her and she and her , who lives in [place] amicably, I am not sure if they . She reports dating since then, she has been on various dates and has been consistently dating a young man since December. She identifies that he is not a good influence in that she drinks more alcohol and smokes marijuana more regularly since dating him. The patient reports trying her boyfriend's propranolol a couple of times, which was helpful with anxiety. The patient denies rubens suicidal ideation. She reports concern about losing time and potentially dissociative identity disorder. She denies HI or . PAST PSYCHIATRIC HISTORY: Previous psychiatric hospitalization in July 2018. As stated above, we started lithium and quetiapine at that time. She has been going to [facility] and recently seeing Katt Krause and Dr. Yip. Previously, the patient saw therapist, Ness Steward PsyD for about a month from May to June 2018 before she discontinued because she did not find the therapist was a good match. SUICIDE/HOMICIDE HISTORY: The patient denies any history of self-injury. She denies previous rubens suicide attempts. She had thoughts in the spring of 2017 when she was very depressed of driving her car into an electric pole. LEGAL HISTORY: The patient denies. PAST MEDICAL HISTORY: The patient denies current medical problems or history of head trauma, seizures, or surgeries. Primary care provider is [facility], Dr. Bunch. Menarche at age 10. 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 FAMILY HISTORY: Bipolar disorder in the patient's maternal half sister. The patient's mother had suffered from depression and was addicted to crack cocaine and heroine and in her 40s. The patient is not aware of any family history of completed suicide. SUBSTANCE USE HISTORY: The patient reported small amount of marijuana use in a pervious admission. She denied alcohol or other drugs at that time. She does identify increased binge drinking, last weekend was her last intoxicated episode. She reports marijuana use daily or every other day via bong. She denies other drug use. PERSONAL AND SOCIAL HISTORY: The patient was born in [place], [place]. She is the third of 6 or 7 half siblings who all had different fathers. Her mother was actively using substances and left her and her siblings in the care of their maternal grandmother. The patient was placed in foster care at age 2 and formally adopted at age 5. The adoptive home was a difficult environment because of other adopted siblings with special needs. She graduated from high school. She attended at [employer] in [place] for 3 years working towards a major in biology. She dropped out after her lacho year because she had her first depressive episode and did not really like the environment. She in November 2016 and enlisted in the [employer] on 02/25/17. During her initial training, she suffered a stress fracture in her left knee and was discharged in April 2017 shattering her life-long dream of making career in the [employer]. 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 She currently works in the [employer] area of [facility]. She does not have any children.. She is either or and identifies as heterosexual, reports that she is having a satisfying relationship. She describes herself as agnostic. She reports financial strain. Lives in an apartment with roommates. REVIEW OF SYSTEMS: Constitutional: Negative. No fever, chills or fatigue. ENT: Negative. Cardiovascular: Negative. Denies chest pain or palpitations. Respiratory: Negative. Denies shortness of breath or cough. Genitourinary: Negative. Musculoskeletal: Negative. Neurological: Negative. PHYSICAL EXAMINATION GENERAL APPEARANCE: The patient is well appearing and well nourished. VITAL SIGNS: Height 5 feet 8 inches, weight 167 pounds, T 97.6, P 71, respiration rate 16, O2 saturation 100%, BP 121/57. HEENT: Head and face: Normal head and face inspection. Eyes: Positive EOMI. PERRLA. Conjunctivae clear. NECK; Supple. Full ROM. Trachea midline. RESPIRATORY: Lung sounds clear to auscultation. Breath sounds present. CARDIOVASCULAR: Heart RRR. Pulses are symmetrical in both upper and lower extremities. MUSCULOSKELETAL: Normal strength. ROM intact. NEUROLOGICAL: Normal sensory and motor intact. Alert and oriented x3 with normal gait. Cerebellar function intact. SKIN: Warm and dry. Color reflects adequate perfusion. MENTAL STATUS EXAM: The patient is a 24-year-old -Polish female, who appears stated age. She is very well put together with meticulous grooming. She is wearing large corrective lenses. She is pleasant upon approach and cooperative with interview. She is alert and oriented x3. She has an erect posture. Eye contact is good. Speech is rapid, pressured at times, overinclusive. Concentration poor. Memory 3/3. Mood is elevated with bright affect. No abnormal psychomotor activity noted. Thought process is circumstantial and overinclusive, tangential at times. Thought content is positive for paranoid ideation. She denies urges to harm self or others. She reports history of auditory or visual hallucinations, denies currently. She reports a recent history of delusional thought content, denies currently. Insight and judgment are fair in that she is willing to be admitted to the hospital on a voluntary basis. She has an average intellect and fund of knowledge is excellent. DIAGNOSIS: Bipolar I disorder. Current episode manic with psychotic features, rule out cluster B personality disorder. Rule out post-traumatic stress disorder. ASSESSMENT: This is a second psychiatric hospitalization for a 24-year-old female who was diagnosed with bipolar disorder in the spring of last year after a trial on an SSRI. Thereafter, she had classic symptoms of suad. Since that time, she self-discontinued from lithium and is on a low- dose quetiapine. She has been exhibiting increased impulsive and self- destructive behaviors. PLAN: The patient is admitted to adult behavioral services unit on voluntary status. Code status is full. She is on safety checks every 15 minutes. She is already participating in supportive milieu and individual sessions with staff and psychoeducational groups. She completed an MMPI during her last hospitalization, which endorsed bipolar I disorder. Therefore, this will not need to be repeated. The patient has given informed consent to increase quetiapine to 300 mg at bedtime. She is also notified that she may use propranolol 20 mg b.i.d. p.r.n. anxiety. We will monitor for mood and thought content. Estimated length of stay is 1 week. Discharge planning will include outpatient providers. DANK GAGE, MELLO [id number]/[facility] #: [id number] ROSE
[2019-05-12] MEDS: QUEtiapine TAB* 300 MG PO SCH (21:01)
[2019-05-13 07:21] LABS: HDL Cholesterol 53.2 mg/dL
[2019-05-13] MEDS: Vitamin THERAPEUTIC TAB PO SCH (09:21)
--- NOTE | 2019-05-13 12:51 | PN ---
Subjective - Subjective Date of Service: 05/13/19 Service Type: 27944 Hosp care 15 min low complexity Subjective: Patient sleeping upon approach, moderately easy to rouse. She reports feeling sedated today and understands this is likely a transient side effect from increased dose of quetiapine. She agrees to continue with current dose to assess for effect. Objective - General Observations Appearance: Unkempt Stature: WNL Posture: Other (See Comment) - lying down Eye Contact: Average Behavior/Activity: Slowed - Interaction Observations Attitude Towards Examiner: Cooperative Stated Mood: Dysphoric Affect: Restricted Speech Pattern/Tone: Appropriate, Quiet Volume Thought Process: Circumstantial, Racing Perception: WNL Thought Content: Paranoid, Grandiose Thought Process: Lethality: Paranoid Ideation Hallucination Type: Denies Delusion Type: Denies - Cognitive Function Orientation: A&O x 4 Level of Consciousness: Alert Cognition: WNL Estimated Intelligence: Normal Insight: WNL Judgment Within Normal Limits: No Ability to Make Reasonable Decisions: Moderately Impaired - Medication Compliance Cooperative with Inpatient Medication Regimen: Yes - Group Participation Participates in Group Activities: Partial Assessment - Assessment Merits Inpatient Hospitalization: For Immediate Safety, For Stabilization Inpatient DSM-V Dx: F31.64 Clinical Impression: 24yo AA female, , domiciled, employed with known history of bipolar disorder who presented to ED self-referred due to psychotic and manic symptoms. She merits hospitalization for immediate safety and stabilization. Plan - Plan Treatment Plan: Name: CHRIS BYRD Birthdate: 1995 [id number] continue acute intensive psychiatric treatment. may decrease to q30min and allow staff pass. continue current medications. discharge to include outpatient providers. Continued Medication Management: Start Medication Medications: Current Medications Acetaminophen (Tylenol Tab*) 650 mg PO Q4H PRN PRN Reason: PAIN or TEMP > 101 F Last Admin: 05/12/19 08:03 Dose: 650 mg Al Hydrox/Mg Hydrox/Simethicone (Maalox Plus*) 30 ml PO Q4H PRN PRN Reason: INDIGESTION Multivitamins (Theragran Tab*) 1 tab PO DAILY DANIEL Last Admin: 05/13/19 09:21 Dose: Not Given Propranolol HCl (Inderal 20 Mg Tab) 20 mg PO BID PRN PRN Reason: anxiety Last Admin: 01/15/20 17:29 Dose: 20 mg Quetiapine Fumarate (Seroquel Tab*) 300 mg PO BEDTIME DANIEL Last Admin: 05/12/19 21:01 Dose: 300 mg - Discharge Plan Discharge Plan: Inpatient Hospitalization
[2019-05-13] MEDS: QUEtiapine TAB* 300 MG PO SCH (21:10)
[2019-05-14] MEDS: Vitamin THERAPEUTIC TAB PO SCH (10:04)
--- NOTE | 2019-05-14 11:24 | PN ---
BSU: Group Therapy Note - Service Type Service Type: 69903 Group Psychotherapy - Cognitive Behavioral Group Therapy ( CBT):Patient was attentive and participatory in CBT programming this morning, and remained in good behavioral control. Patient expressed positive insights regarding relevant treatment interventions and goals.
--- NOTE | 2019-05-14 14:43 | PN ---
Subjective - Subjective Date of Service: 05/14/19 Service Type: [id number] Hosp care 25 min moderate complexity Subjective: Patient reports improvement in sedation, compared to yesterday. She presents with pressured speech and is over-inclusive in conversation. She has logical and thoughtful questions about treatment recommendations. She inquires about need for mood stabilizer in addition to antipsychotic. Neck Band Maker suggests lithium or lamotrigine. We discuss risk/benefits of both options. Patient is more receptive to lamotrigine but is undecided. Patient notified that medication will be ordered in case she decides to start the slow titration and that she has the right to refuse. Objective - General Observations Appearance: Well Groomed Stature: WNL Posture: WNL Eye Contact: Average Behavior/Activity: Accelerated - Interaction Observations Attitude Towards Examiner: Cooperative Stated Mood: Elevated, Anxious Affect: Bright Speech Pattern/Tone: Pressured Thought Process: Circumstantial, Over Inclusive, Racing Perception: WNL Thought Content: Preoccupation/Ruminations, Depressive, Grandiose Thought Process: Lethality: Passive Wish Hallucination Type: Denies Delusion Type: Denies - Cognitive Function Orientation: A&O x 4 Level of Consciousness: Alert Cognition: Impaired Attention/Concentration Estimated Intelligence: Normal Insight: WNL Judgment Within Normal Limits: No Ability to Make Reasonable Decisions: Moderately Impaired - Medication Compliance Cooperative with Inpatient Medication Regimen: Yes - Group Participation Participates in Group Activities: Yes Assessment - Assessment Merits Inpatient Hospitalization: For Immediate Safety, For Stabilization Inpatient DSM-V Dx: F31.64 Clinical Impression: 24yo AA female, , domiciled, employed with known history of bipolar disorder who presented to ED self-referred due to psychotic and manic symptoms. She merits hospitalization for immediate safety and stabilization. Plan - Plan Treatment Plan: Name: CHRIS BYRD Birthdate: 1995 [id number] continue acute intensive psychiatric treatment. may decrease to q30min and allow staff pass. may have computer privileges per RN discretion. start titration of lamotrigine. continue other medications, as ordered. discharge to include outpatient providers. Continued Medication Management: Start Medication Medications: Current Medications Acetaminophen (Tylenol Tab*) 650 mg PO Q4H PRN PRN Reason: PAIN or TEMP > 101 F Last Admin: 05/12/19 08:03 Dose: 650 mg Al Hydrox/Mg Hydrox/Simethicone (Maalox Plus*) 30 ml PO Q4H PRN PRN Reason: INDIGESTION Lamotrigine (Lamictal Tab(*)) 25 mg PO BEDTIME DANIEL Multivitamins (Theragran Tab*) 1 tab PO DAILY [facility] Last Admin: 05/14/19 10:04 Dose: Not Given Propranolol HCl (Inderal 20 Mg Tab) 20 mg PO BID PRN PRN Reason: anxiety Last Admin: 05/14/19 13:23 Dose: 20 mg Quetiapine Fumarate (Seroquel Tab*) 300 mg PO BEDTIME [facility] Last Admin: 05/13/19 21:10 Dose: 300 mg - Discharge Plan Discharge Plan: Inpatient Hospitalization
[2019-05-14] MEDS: lamoTRIgine TAB(*) 25 MG PO SCH (22:08)
[2019-05-14] MEDS: QUEtiapine TAB* 300 MG PO SCH (22:08)
[2019-05-15] MEDS: Vitamin THERAPEUTIC TAB PO SCH (11:04)
[2019-05-15] MEDS: QUEtiapine TAB* 300 MG PO SCH (21:42)
[2019-05-15] MEDS: lamoTRIgine TAB(*) 25 MG PO SCH (21:42)
[2019-05-16] MEDS: Vitamin THERAPEUTIC TAB PO SCH (09:59)
--- NOTE | 2019-05-16 18:51 | PN ---
Subjective - Subjective Date of Service: 05/16/19 Service Type: 54578 Hosp care 25 min moderate complexity Subjective: Chris reports that her depression is much better (3/10) but feels tired. Sleep has been good but appetite has increased. Denies SI, hallucinations or delusions. Says she is not ready to go back to work yet and would like to stay here for few more days. Objective - General Observations Appearance: Neat Stature: Tall Posture: WNL Eye Contact: Average Behavior/Activity: WNL - Interaction Observations Attitude Towards Examiner: Cooperative Stated Mood: Euthymic Affect: Full Speech Pattern/Tone: Clear, Appropriate, Normal Volume Thought Process: Coherent, Goal Directed Perception: WNL Thought Content: WNL Hallucination Type: Denies Delusion Type: Denies - Cognitive Function Orientation: A&O x 4 Level of Consciousness: Awake, Alert, Appropriate Cognition: WNL Estimated Intelligence: Normal Insight: Mostly Blames Others for Problems Judgment Within Normal Limits: No Ability to Make Reasonable Decisions: Mildly Impaired - Medication Compliance Cooperative with Inpatient Medication Regimen: Yes - Group Participation Participates in Group Activities: Yes Assessment - Assessment Merits Inpatient Hospitalization: Consolidate Improvements, For Discharge Planning Inpatient DSM-V Dx: F31.64 Clinical Impression: 24yo AA female, , domiciled, employed with known history of bipolar disorder who presented to ED self-referred due to psychotic and manic symptoms. She merits hospitalization for immediate safety and stabilization. Plan - Plan Treatment Plan: Name: CHRIS BYRD Birthdate: 1995 [id number] continue acute intensive psychiatric treatment. may decrease to q30min and allow staff pass. may have computer privileges per RN discretion. start titration of lamotrigine. continue other medications, as ordered. discharge to include outpatient providers. Continued Medication Management: Continue Outpt Medication Medications: Current Medications Acetaminophen (Tylenol Tab*) 650 mg PO Q4H PRN PRN Reason: PAIN or TEMP > 101 F Last Admin: 05/12/19 08:03 Dose: 650 mg Al Hydrox/Mg Hydrox/Simethicone (Maalox Plus*) 30 ml PO Q4H PRN PRN Reason: INDIGESTION Lamotrigine (Lamictal Tab(*)) 25 mg PO BEDTIME [facility]ANIEL Last Admin: 05/15/19 21:42 Dose: 25 mg Multivitamins (Theragran Tab*) 1 tab PO DAILY [facility] Last Admin: 05/16/19 09:59 Dose: Not Given Propranolol HCl (Inderal 20 Mg Tab) 20 mg PO BID PRN PRN Reason: anxiety Last Admin: 05/14/19 17:14 Dose: 20 mg Quetiapine Fumarate (Seroquel Tab*) 300 mg PO BEDTIME [facility] Last Admin: 05/15/19 21:42 Dose: 300 mg - Discharge Plan Discharge Plan: Outpatient Follow Up Outpatient Program: [facility]
[2019-05-16] MEDS: QUEtiapine TAB* 300 MG PO SCH (22:02)
[2019-05-16] MEDS: lamoTRIgine TAB(*) 25 MG PO SCH (22:02)
[2019-05-17] MEDS: Vitamin THERAPEUTIC TAB PO SCH (10:10)
[2019-05-17 11:17] VITALS: BP 125/75
--- NOTE | 2019-05-18 14:25 | DS ---
CC: [facility]; [facility] * DISCHARGE SUMMARY: DATE OF ADMISSION: 05/12/19 DATE OF DISCHARGE: 05/17/19 SUPERVISING PSYCHIATRIST: Dr. Jem Wooten.* (DICTATED BY DANK GAGE NP) DISCHARGE DIAGNOSIS: Bipolar I disorder, most recent episode mixed with psychotic features. CONDITION AT THE TIME OF DISCHARGE: Improved. The patient is euthymic, well related with full range of affect. She is future oriented and reports readiness for discharge. She has denied suicidal ideation. She has denied audio or visual hallucinations. There have not been perceptual disturbances noted. She has tolerated addition of lamotrigine and propranolol along with an increase in quetiapine. She is discharged to home. MENTAL STATUS EXAM: Maria Luz is a 24-year-old -[place] female, who appears stated age. She is very well put together with meticulous grooming. She is wearing large eye glasses. She is pleasant and cooperative. She is alert and oriented x3. She has adequate posture. Eye contact is good. Speech is normal in rate, rhythm and volume. Concentration good. Memory 3/3. Mood is euthymic with congruent affect. No abnormal psychomotor activity noted. Thought process is logical, goal directed and coherent. Thought content is negative for suicidal ideation, urges for self-harm or paranoid ideation. She denies auditory or visual hallucinations. She denies delusional thought content. Insight and judgment are good, improved. She has average intellect and her fund of knowledge is excellent. INSTRUCTIONS GIVEN TO PATIENT: A. Medications: 1. Lamotrigine 25 mg p.o. at bedtime. 2. Propranolol 20 mg p.o. b.i.d. p.r.n. anxiety. 3. Quetiapine 300 mg p.o. at bedtime. B. Diet: Regular. C. Activity: Ambulation as tolerated. There are no pending labs or diagnostic studies. Tobacco cessation is not applicable. D. Followup care: The patient was referred back to [facility] and has an appointment with her therapist on the day after discharge and an appointment with the psychiatrist on 05/20/19. She is also referred back to her primary care provider and has an appointment on the morning of 05/20/19. She was given information about local support groups for bipolar disorder and mental wellness. E. Substance use followup: The patient reports desire to abstain from substances and declines offer of substance use treatment referral. HOSPITAL COURSE: Part A: Reason for admission: Maria Luz presented to the emergency department self- referred after a crisis appointment at [facility]. She reports she has been dissociating often and having very prominent delusions. She refers to herself as rapid cycling with periods of depression. She states that she has even had thoughts that she was possessed by a demonic presence. She states she has been having difficulty sleeping. She doubled up on her quetiapine Friday night and smoked marijuana. She reports feeling altered for a couple of days including auditory, visual and olfactory hallucinations. The patient states that she stopped lithium last September and told her primary care provider after the fact. She sees Dr. Yip, psychiatrist at [facility] and was advised to increase her dose of quetiapine last summer, but chose not to, so remained at 100 mg at bedtime. The patient had been working towards divorce. When we last knew her, she and her who lives in [place] amicably. She reports dating since then, she has been on various dates and has been consistently dating a young man since December. She identifies that he is not a good influence in that she drinks more alcohol and smokes marijuana more regularly since dating him. The patient reports trying her boyfriend's propranolol a couple of times, which was helpful with anxiety. She reports concern about losing time and potentially related to dissociative identity disorder. Part B: Psychiatric treatment rendered: The patient was admitted to the adult behavioral services unit on voluntary status. Code status was full. She was placed on safety checks every 15 minutes. She participate in supportive milieu , individual sessions with staff and psychoeducational groups. She gave informed consent to increase quetiapine to 300 mg at bedtime for better coverage of psychotic symptoms and we added propranolol 20 mg b.i.d. p.r.n. anxiety. The following day, the patient was heavily sedated and was encouraged to remain in bed. The following day, she had adequate energy and denied sedative effect. We discussed multiple options for mood stabilization. The patient decided to start a trial of lamotrigine as this had been recommended by her outpatient psychiatrist in the past. The patient also stated understanding of slow titration schedule and to monitor for rash and to not change soaps or detergents at this time. The patient was decreased to 30-minute observation and allowed staff pass. She was in behavior control, noted to sleep well. She reported improvement in mood. On 05/17/19, the patient reported readiness to be discharged from the hospital. She requested note to be able to return home and acquiesce for a day or 2 before returning to work. This is appropriate in that the patient is knowledgeable of her needs and is a good historian. The patient did very well in this hospital setting. We discussed her need for increased community and social outlets. She reached out to her mother and spoke via phone. She was deflated when her mother did not visit. 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 We hope that Maria Luz does well in the outpatient setting. She is encouraged to call with any questions or concerns at any time and to return to the ED should symptoms worsen. DANK GAGE NP [id number]/[facility] #: [id number] ROSE
== END 2019-05-17 13:20 | disposition home or self-care (01) | DRG 753 ==
LOC: ED 17:38 → BSU 05-12 03:40
PROVIDERS: ADMIT Psychiatry & Neurology Psychiatry; ATTEND Psychiatry & Neurology Psychiatry
PROC: GZHZZZZ Group Psychotherapy (ICD-10-PCS; principal; 2019-05-14)
DX: F31.64 Bipolar disorder, current episode mixed, severe, with psychotic features (principal); J45.909 Unspecified asthma, uncomplicated; Z79.899 Other long term (current) drug therapy
CPT/HCPCS: 36415; 80053; 80061; 80307; 80320; 80329; 81003; 81015; 83036; 84443; 85025; 87086; 90853; 99222; 99231; 99232; 99238; 99284; A9270-GY; G0480

== ENCOUNTER 2019-05-25 11:07 | Emergency (ER) | payer BC ==
--- NOTE | 2019-05-25 13:15 | ED ---
Psychiatric Complaint - HPI Summary HPI Summary: Patient is a 24 y/o F presenting to the ED for a psychiatric complaint. Patient reports decreased concentration and racing thoughts. On triage, patient reported wanting to do yoga and meditate instead of working. Patient notes wanting to do yoga "passionately to share her haritha" and that she feels " intuitive and strong." Patient had a breakup with her boyfriend on 05/21/19 and states she cannot "gauge" her feelings because she also feels happy. She states she feels manic. Patient denies myalgia, headache, sleep disturbance, SI or HI. Recently, patient had a 6 day admission to [facility] and prescribed Lamictal and Propranolol in addition to the Seroquel she was taking. PMHx is significant for bipolar disorder. - History Of Current Complaint Chief Complaint: EDPsychosocial Time Seen by Provider: 05/25/19 13:06 Hx Obtained From: Patient Hx Last Menstrual Period: 05/01/18 Onset/Duration: Sudden Onset, Still Present Timing: Constant Severity Initially: Moderate Severity Currently: Moderate Character: Manic Aggravating Factor(s): Recent Stress Alleviating Factor(s): Nothing Associated Signs And Symptoms: Negative: Sleep Disturbance Related History: Positive For: Prior Psychiatric Issues Has Suicidal: Denies: Thoughts Has Homicidal: Denies: Thoughts - Allergies/Home Medications Allergies/Adverse Reactions: Allergies Allergy/AdvReac Type Severity Reaction Status Date / Time No Known Allergies Allergy Verified 05/25/19 13:46 PMH/Surg Hx/FS Hx/Imm Hx Previously Healthy: Yes Endocrine/Hematology History: Denies: Hx Diabetes, Hx Thyroid Disease Cardiovascular History: Denies: Hx Hypertension Respiratory History: Reports: Hx Asthma Denies: Hx Chronic Obstructive Pulmonary Disease (COPD) GI History: Denies: Hx Ulcer Musculoskeletal History: Reports: Hx Orthopedic Injury - stress fx to left knee Sensory History: Denies: Hx Contacts or Glasses, Hx Legally Blind, Hx Deafness, Hx Hearing Aid Opthamlomology History: Denies: Hx Contacts or Glasses, Hx Legally Blind EENT History: Denies: Hx Deafness Psychiatric History: Reports: Hx Anxiety, Hx Panic Disorder, Hx Post Traumatic Stress Disorder, Hx Bipolar Disorder, Hx Substance Abuse - [facility] Denies: Hx Eating Disorder, Hx Suicide Attempt, Hx of Violent Episodes Against Others - Cancer History Cancer Type, Location and Year: anemia - Surgical History Surgical History: None Surgery Procedure, Year, and Place: none Infectious Disease History: No Infectious Disease History: Denies: Hx Clostridium Difficile, Hx Hepatitis, Hx Human Immunodeficiency Virus (HIV), Hx of Known/Suspected MRSA, Hx Shingles, Hx Tuberculosis, Hx Known/ Suspected VRE, Hx Known/Suspected VRSA, History Other Infectious Disease, Traveled Outside the [place] in Last 30 Days - Family History Known Family History: Positive: Respiratory Disease - asthma - Social History Occupation: Employed Full-time Alcohol Use: Occasionally Alcohol Amount: " too much for my liver to handle. At least 4 drinks a night when I'm drink Hx Substance Use: Yes Substance Use Type: Reports: Marijuana Substance Use Comment - Amount & Last Used: 2 days ago Hx Tobacco Use: No Smoking Status (MU): Never Smoked Tobacco Review of Systems Negative: Myalgia Negative: Headache Psychological: Other - Positive manic mood; negative sleep disturbance, SI, or HI All Other Systems Reviewed And Are Negative: Yes Physical Exam - Summary Physical Exam Summary: Constitutional: Well-developed, Well-nourished, Alert. (-) Distressed Skin: Warm, Dry HENT: Normocephalic; Atraumatic Eyes: Conjunctiva normal Neck: Musculoskeletal ROM normal neck. (-) JVD, (-) Stridor, (-) Nuchal rigidity Cardio: Rhythm regular, rate normal, Heart sounds normal; Intact distal pulses; Radial pulses are 2+ and symmetric. (-) Murmur Pulmonary/Chest wall: Effort normal. (-) Respiratory distress, (-) Wheezes, (-) Rales Abd: Soft, (-) tenderness, (-) Distension, (-) Guarding, (-) Rebound Musculoskeletal: (-) Edema Lymph: (-) Cervical adenopathy Neuro: Alert, Oriented x3 Psych: Mood and affect Normal. Hyper-verbal. Triage Information Reviewed: Yes Vital Signs On Initial Exam: Initial Vitals Temp Pulse Resp BP Pulse Ox 97.3 F 91 18 138/91 100 05/25/19 11:13 05/25/19 11:13 05/25/19 11:13 05/25/19 11:13 05/25/19 11:13 Vital Signs Reviewed: Yes Procedures - Sedation Patient Received Moderate/Deep Sedation with Procedure: No Diagnostics - Vital Signs Vital Signs Temp Pulse Resp BP Pulse Ox 05/25/19 12:48 98.0 F 93 18 117/95 98 05/25/19 11:13 97.3 F 91 18 138/91 100 - Laboratory Lab Statement: Any lab studies that have been ordered have been reviewed, and results considered in the medical decision making process. Re-Evaluation - Re-Evaluation First Eval Re-Evaluation Time: 13:18 Change: Unchanged Comment: At 13:18, patient is medically cleared for a mental health evaluation. Course/Dx - Course Course Of Treatment: 24 y/o F w hx BPD p/w manic like episode. - NAD. No medical complaints. No SI/HI. Will have MH team talk w her but suspect she can be safely discharged. - Differential Dx/Clinical Impression Provider Diagnosis: Bipolar 1 disorder - Physician Notifications Discussed Care Of Patient With: Jem Wooten - At 14:55, MH software solutions architect reports that Dr. Jem Wooten reviewed the patients case and will discharge the patient with a diagnosis of bipolar disorder. Time Discussed With Above Provider: 14:55 Instructed by Provider To: Other - Discharge Discharge ED - Sign-Out/Discharge Documenting (check all that apply): Patient Departure - Discharge - Discharge Plan Condition: Stable Disposition: HOME Referrals: Vonnie Bunch DO [Primary Care Provider] - - Billing Disposition and Condition Condition: STABLE Disposition: Home - Attestation Statements Document Initiated by Gayathri: Yes Documenting Scribe: Gris Carter Provider For Whom Gayathri is Documenting (Include Credential): Peter Mckeon MD Scribe Attestation: IGris, scribed for Peter Mckeon MD on 05/25/19 at 1544. Scribe Documentation Reviewed: Yes Provider Attestation: The documentation as recorded by the Gris guerrero accurately reflects the service I personally performed and the decisions made by , Peter Mckeon MD Status of Scribe Document: Viewed
[2019-05-25 15:11] VITALS: BP 117/72
== END 2019-05-25 15:10 | disposition home or self-care (01) ==
LOC: ED 11:07
DX: F31.9 Bipolar disorder, unspecified (principal); F41.9 Anxiety disorder, unspecified
CPT/HCPCS: 99283

== ENCOUNTER 2019-07-13 10:26 | Inpatient (IN) | payer BC ==
--- NOTE | 2019-07-13 10:52 | ED ---
Psychiatric Complaint - HPI Summary HPI Summary: 24-year-old female presents not feeling right for past couple months. She states that she is at a breaking point. She states that she believes she has dissociative personality disorder. States she feels whenever she has an episode only yoga helps. She will not clarify what she exactly feels. States she was diagnosed with bipolar and none of her medications are helping. She sees therapist and has psychiatrist. States that covid is causing her to feel out of control. States she has been exercise and going to the gym and showing up to work but it has been a struggle. She denies any drug use. She denies any hallucinations. - History Of Current Complaint Chief Complaint: EDMentalHealth Time Seen by Provider: 07/13/19 10:36 Hx Last Menstrual Period: 05/01/18 - Allergies/Home Medications Allergies/Adverse Reactions: Allergies Allergy/AdvReac Type Severity Reaction Status Date / Time No Known Allergies Allergy Verified 07/13/19 11:10 Home Medications: Home Medications Multivitamins/Minerals TAB* [Theragran/minerals TAB*] 1 tab PO DAILY 06/15/18 [ History Confirmed 07/13/19] QUEtiapine TAB* [Seroquel 300 MG TAB*] 300 mg PO BEDTIME #7 tab 05/17/19 [Rx Confirmed 07/13/19] Cetirizine* [ZyrTEC 10 MG TAB*] 10 mg PO DAILY 07/13/19 [History Confirmed 07/12] lamoTRIgine TAB(*) [Lamictal TAB(*)] 150 mg PO BEDTIME 07/13/19 [History Confirmed 07/13/19] PMH/Surg Hx/FS Hx/Imm Hx Endocrine/Hematology History: Denies: Hx Diabetes, Hx Thyroid Disease Cardiovascular History: Denies: Hx Hypertension Respiratory History: Reports: Hx Asthma Denies: Hx Chronic Obstructive Pulmonary Disease (COPD) GI History: Denies: Hx Ulcer Musculoskeletal History: Reports: Hx Orthopedic Injury - stress fx to left knee Sensory History: Denies: Hx Contacts or Glasses, Hx Legally Blind, Hx Deafness, Hx Hearing Aid Opthamlomology History: Denies: Hx Contacts or Glasses, Hx Legally Blind Psychiatric History: Reports: Hx Anxiety, Hx Panic Disorder, Hx Post Traumatic Stress Disorder, Hx Bipolar Disorder, Hx Substance Abuse - [facility] Denies: Hx Eating Disorder, Hx Suicide Attempt, Hx of Violent Episodes Against Others - Cancer History Cancer Type, Location and Year: anemia - Surgical History Surgery Procedure, Year, and Place: none Infectious Disease History: No Infectious Disease History: Denies: Hx Clostridium Difficile, Hx Hepatitis, Hx Human Immunodeficiency Virus (HIV), Hx of Known/Suspected MRSA, Hx Shingles, Hx Tuberculosis, Hx Known/ Suspected VRE, Hx Known/Suspected VRSA, History Other Infectious Disease, Traveled Outside the [place] in Last 30 Days - Family History Known Family History: Positive: Respiratory Disease - asthma - Social History Alcohol Use: Occasionally Alcohol Amount: " too much for my liver to handle. At least 4 drinks a night when I'm drink Hx Substance Use: Yes Substance Use Type: Reports: Marijuana Substance Use Comment - Amount & Last Used: 2 days ago Hx Tobacco Use: No Smoking Status (MU): Never Smoked Tobacco Review of Systems Negative: Fever Negative: Chest Pain Negative: Shortness Of Breath Positive: Other - psychosis All Other Systems Reviewed And Are Negative: Yes Physical Exam Triage Information Reviewed: Yes Vital Signs On Initial Exam: Initial Vitals Temp Pulse Resp BP Pulse Ox 98.3 F 108 22 131/69 100 07/13/19 10:28 07/13/19 10:28 07/13/19 10:28 07/13/19 10:28 07/13/19 10:28 Vital Signs Reviewed: Yes Appearance: Positive: Well-Appearing Skin: Positive: Warm, Dry Head/Face: Positive: Normal Head/Face Inspection Eyes: Positive: Normal, Conjunctiva Clear ENT: Positive: Pharynx normal Respiratory/Lung Sounds: Positive: Clear to Auscultation, Breath Sounds Present Cardiovascular: Positive: Normal, RRR Musculoskeletal: Positive: Normal Neurological: Positive: Normal Psychiatric: Positive: Other - crying and rolling on floor, Patient Uncooperative for Exam Procedures - Sedation Patient Received Moderate/Deep Sedation with Procedure: No Diagnostics - Vital Signs Vital Signs Temp Pulse Resp BP Pulse Ox 07/13/19 10:28 98.3 F 108 22 131/69 100 - Laboratory Result Diagrams: 07/13/19 11:05 07/13/19 11:05 Lab Statement: Any lab studies that have been ordered have been reviewed, and results considered in the medical decision making process. Course/Dx - Course Course Of Treatment: 24-year-old female presents not feeling right for past couple months. She states that she is at a breaking point. She states that she believes she has dissociative personality disorder. States she feels whenever she has an episode only yoga helps. She will not clarify what she exactly feels. States she was diagnosed with bipolar and none of her medications are helping. She sees therapist and has psychiatrist. States that covid is causing her to feel out of control. States she has been exercise and going to the gym and showing up to work but it has been a struggle. She denies any drug use. On exam patient initially was calm and then started screaming and throwing herself on the floor. She then calmed down after little bit. is medically clear for . patient will be voluntarily admitted per dr helms. - Differential Dx/Clinical Impression Differential Diagnosis/HQI/PQRI: Positive: Anxiety, Depression, Suicidal Ideation Provider Diagnosis: Giselle Discharge ED - Sign-Out/Discharge Documenting (check all that apply): Patient Departure - Discharge Plan Condition: Stable [facility] [place] Referrals: Vonnie Bunch DO [Primary Care Provider] - - Billing Disposition and Condition Condition: STABLE Disposition[place] [facility]
[2019-07-13 11:22] LABS: ABS Eosinophils 0.1 10^3/ul (0-0.6); ABS Lymphocytes 1.5 10^3/ul (1.0-4.8); ABS Monocytes 0.5 10^3/ul (0-0.8); ABS Neutrophils 3.8 10^3/ul (1.5-7.7); Eosinophil % 0.9 %; Hematocrit 41 % (35-47); Hemoglobin 13.9 g/dL (12.0-16.0); Lymphocyte % 25.3 %; Mean Corpuscular HGB Conc 34 g/dL (31-36); Mean Corpuscular Hemoglobin 33 pg (27-31); Mean Corpuscular Volume 95 fL (80-97); Mean Platelet Volume 7.9 fL (7.4-10.4); Platelet Count 222 10^3/uL (150-450); Red Blood Count 4.27 10^6 /uL (3.70-4.87); Red Cell Distribution Width 13 % (10-15); White Blood Count 5.8 10^3/uL (3.5-10.8)
[2019-07-13 11:41] LABS: ALT 12 U/L (7-52); AST 22 U/L (13-39); Albumin 4.9 g/dL (3.2-5.2); Albumin/Globulin Ratio 1.9 (1-3); Alkaline Phosphatase 50 U/L (34-104); Anion Gap 8 mmol/L (2-11); BUN/Creatinine Ratio 6.5 (8-20); Blood Urea Nitrogen 8 mg/dL (6-24); CO2 Carbon Dioxide 27 mmol/L (22-32); Chloride 104 mmol/L (101-111); EGFR African American 63.9 (>60); EGFR Non-African American 52.8 (>60); Globulin 2.6 g/dL (2-4); Glucose 91 mg/dL (70-100); Potassium 3.8 mmol/L (3.5-5.0); Sodium 139 mmol/L (135-145); Total Protein 7.5 g/dL (6.4-8.9)
[2019-07-13 11:50] LABS: Alcohol 12 mg/dL (<10); Salicylate < 2.50 mg/dL (<30)
[2019-07-13 11:53] LABS: Acetaminophen < 15 mcg/mL
[2019-07-13 12:05] LABS: TSH (Thyroid Stimulating Horm) 1.79 mcIU/mL (0.34-5.60)
[2019-07-13 19:54] LABS: Urine Appearance Clear; Urine Bilirubin Negative (Negative); Urine Blood Negative (Negative); Urine Color Yellow; Urine Glucose Negative (Negative); Urine Ketones Negative (Negative); Urine Nitrite Negative (Negative); Urine Protein Negative (Negative); Urine Specific Gravity 1.016 (1.010-1.030); Urine Urobilinogen Negative (Negative)
[2019-07-13 20:29] LABS: Urine Benzodiazepine Screen None Detected (None Detect); Urine Opiates Screen None Detected (None Detect)
[2019-07-13] MEDS ORDERED: lamoTRIgine TAB(*) 100 MG PO SCH (21:00)
[2019-07-13] MEDS ORDERED: Acetaminophen TAB* 325 MG PO PRN (21:42)
[2019-07-13] MEDS ORDERED: Al Hydrox/Mg Hydrox/Simet LIQ* 30 ML UDC PO PRN (21:42)
[2019-07-13] MEDS: QUEtiapine TAB* 300 MG PO SCH (22:05)
[2019-07-13] MEDS: Cetirizine* 10 MG TAB PO SCH (23:00)
[2019-07-14] MEDS: Multivitamins/Minerals TAB PO SCH (09:38)
[2019-07-14] MEDS: Cetirizine* 10 MG TAB PO SCH (09:38)
[2019-07-14 10:44] LABS: HCG Pregnancy < 0.60 mIU/mL
--- NOTE | 2019-07-14 11:47 | PN ---
BSU: Group Therapy Note - Service Type Service Type: [id number] Psychotherapy - Individual Psychotherapy Note: Maria Luz was initially agitated but interested in discussing her thoughts and recent experiences. She initially described perceptual abnormalities regarding experiencing facial sensations, and then describing what sounds to be vertigo type problems. She denied hearing voices or having suicidal impulses, and responded positively to discussion addressing utlization of medications, as well as abstaining from continuing marijuana use. Maria Luz's initial agitation calmed with continued discussion, and she impressed as having good insight regarding discussion of symptoms. She has had significant relational distress in recent weeks, but impresses as having improving judgement regarding poor choices of partners. She impresses as cooperative and grateful for treatment.
--- NOTE | 2019-07-14 18:39 | HP ---
HISTORY AND PHYSICAL: DATE OF ADMISSION: 07/13/19 SUPERVISING PSYCHIATRIST: Dr. Jem Wooten.* (DICTATED BY DANK GAGE NP) JUSTIFICATION FOR ADMISSION: The patient presented to the emergency department with self-reported psychotic episode and desire for mental health evaluation. The patient merits hospitalization for immediate safety and stabilization. HISTORY OF PRESENT ILLNESS: Maria Luz is a 24-year-old black female, domiciled, employed, who presented to the emergency department self-referred after an appointment at [facility]. She reports that she went to [facility] demanding immediate assistance. Her primary counselor was not available and she agreed to meet with Chetan, via phone due to pandemic precautions. The patient reports much concern about psychotic and dissociative episodes. When database report writer asks to clarify between psychotic and panic attack, the patient identifies that she is defensive and knows the difference between panic attack and something different. She states that she knows how to calm herself down and has many coping skills for panic attack. I encouraged to discuss symptoms. She reports her face becomes numb. She has vision changes and then had tremors that shook the whole house. She states she tried to stop it by running outside and then went into her car, but that kept shaking. She reports she was having convulsions, screaming, crying, and flailing. She goes on to discuss frustration that her roommate did not help her. She inquires about database report writer's knowledge of her time in the ED. She states she was screaming, flailing, demanding to be triaged to a high priority and is frustrated that she was in the ED for longer than she deems appropriate. The patient reports the night before presenting to the clinic she and her roommate decided to use marijuana to calm down because they were both experiencing extreme stress. The patient endorses using marijuana occasionally , but has difficulty knowing when to stop and "it goes from feeling good to putting me in a psychotic state." She reports seeing Dr. Yip at [facility] at the beginning of this month. They discussed that she was having poor sleep and the patient's quetiapine and Lamictal were increased. The patient reports that she has been exercising, improving her diet, and working very hard on improving mental health generally. When given information that cannabis is likely worsening her symptoms, she is tearful, upset, and self- critical. The patient reports that quetiapine causes excessive sweating at night. I inquired about nightmares and she endorses such. The patient is circumstantial in regards to diagnoses and reports that she needs to have an accurate diagnosis. PAST PSYCHIATRIC HISTORY: Maria Luz has 2 previous psychiatric hospitalizations at [facility], most recently in April of this year and previously in July 2018. She has a history of bipolar 1 disorder, PTSD, and panic attacks. The patient reports that she has been having "dissociative states" since April and that the above descriptors "pretty much with their like," but this time was worse. The patient is a client of [facility], most recently seen by Dr. Yip and is transitioning to Dr. Costello in the beginning of July. Her primary therapist is Katt Krause. SUICIDE/HOMICIDE HISTORY: The patient denies. She reports feeling safe on the unit. LEGAL HISTORY: Denies. SUBSTANCE USE HISTORY: Onset of marijuana use in the past year. She reports no alcohol use in the past 2 weeks even when notified her serum alcohol level was 12 on the morning of her arrival to the ED. PAST MEDICAL HISTORY: The patient was born to addicted to crack cocaine. FAMILY HISTORY: Bipolar disorder in the patient's maternal half-sister. The patient's mother suffered from depression and was addicted to crack cocaine, heroin, and in her 40s. The patient is not aware of any family history of completed suicide. PERSONAL AND SOCIAL HISTORY: The patient was born in [place], [place]. She is the third of 6 or 7 half-siblings, who all had different fathers. Her mother was actively using substances and left her and her siblings in the care of their maternal grandmother. The patient was placed in foster care at age 2 and formally adopted at age 5. The adoptive home was a difficult environment because of other adopted siblings with special needs. The patient describes her family as conservative Religious. She graduated from high school. She attended a Religious college in [place] for 3 years, working towards a major in biology. She dropped out after her lacho year because she had her first depressive episode and did not really like the environment. 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 During her initial training, she suffered a stress fracture in her left knee and was discharged in April 2017, shattering her lifelong dream of making a career in the [employer]. 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 She does not have any children. She describes herself as agnostic. She reports financial strain. She lives in an apartment with a roommate. REVIEW OF SYSTEMS: Constitutional: Negative. No fever, chills, or fatigue. ENT : Negative. Cardiovascular: Negative. Denies chest pain or palpitations. Respiratory: Negative. Denies shortness of breath or cough. Genitourinary: Negative. Musculoskeletal: Negative. Neurological: Negative. PHYSICAL EXAMINATION GENERAL: The patient is well appearing and well nourished. RESPIRATORY: Respirations are unlabored and even. Rate is within normal limits. CARDIOVASCULAR: Heart RRR. Pulses are symmetrical in both upper and lower extremities. MUSCULOSKELETAL: Normal strength. ROM intact. NEUROLOGICAL: Normal sensory and motor intact. Cerebellar function intact. SKIN: Warm and dry. Color reflects adequate perfusion. No rash or open areas noted. LABORATORY DATA: CBC within normal limits. Chemistry within normal limits with the exception of creatinine 1.23, BUN/creatinine ratio 6.5. TSH normal at 1.79. HCG negative. Urinalysis within normal limits. Toxicology negative for salicylates, acetaminophen. Serum alcohol of 12 at 11:05 yesterday morning. Urine drug screen positive for cannabinoids. MENTAL STATUS EXAM: Maria Luz is a 24-year-old black female, who appears stated age. She is well groomed. She is casually dressed in her own clothing and sitting up with adequate posture. She is cooperative and answers questions fully. She is alert and oriented x3. Eye contact is fair. Speech is articulate, spontaneous, loud at times. Concentration good. Memory 3/3. Mood is dysphoric with tearful affect. No abnormal psychomotor activity noted. Thought process is circumstantial, logical, and coherent. Thought content is negative for suicidal ideation or passive wish. She denies HI or . She denies auditory or visual hallucinations. There is mild paranoid ideation present. Insight and judgment are poor. She appears to have at least an average intellect and her fund of knowledge is excellent. DIAGNOSES: 1. Cannabis intoxication with perceptual disturbances. 2. Bipolar 1 disorder, current episode mixed. 3. Posttraumatic stress disorder. ASSESSMENT: Maria Luz is cooperative, although noted to be defensive at times. She makes statements such as "I need people to listen to me without the umbrella of bipolar disorder" when there had been no mention of any psychiatric diagnosis as this was within the first few minutes of the conversation. She is noted to make such statements such as "I was psychotic" and "I was dissociating, " but is unable to elaborate on these statements with aligning descriptors of the behaviors. She adamantly denies that her presenting behaviors in the emergency department were related to panic, stating "I know how to bring myself out of those." This is the patient's third hospitalization, second following marijuana use. She meets the criteria for mild cannabis use disorder. She has a well-documented history of bipolar disorder and posttraumatic stress disorder symptoms. PLAN: The patient is admitted to adult behavioral services unit on voluntary status. Code status is full. She is on 15-minute checks for her safety. She is already participating in supportive milieu, individual sessions with staff and psychoeducational groups. She gave informed consent to increase lamotrigine to 100 mg b.i.d. and to add prazosin for PTSD related sleep disturbances. Estimated length of stay is 5 to 7 days. Discharge planning will include outpatient providers. DANK GAGE NP [id number]/CPS #: [id number] ROSE
[2019-07-14] MEDS: lamoTRIgine TAB(*) 100 MG PO SCH (21:21)
[2019-07-14] MEDS: QUEtiapine TAB* 300 MG PO SCH (21:21)
[2019-07-15] MEDS: Cetirizine* 10 MG TAB PO SCH (09:15)
[2019-07-15] MEDS: Multivitamins/Minerals TAB PO SCH (09:15)
[2019-07-15] MEDS: lamoTRIgine TAB(*) 100 MG PO SCH (09:16)
--- NOTE | 2019-07-15 10:37 | PN ---
Subjective - Subjective Date of Service: 07/15/19 Service Type: [id number] Hosp care 25 min moderate complexity Subjective: Patient reports much improved mood and thought process. She reports feeling ready to be discharged. She states she is motivated to utilize community resources and healthy habits. Patient is also encouraged to recognize her progress and strengths. She is jovial and generally pleasant to be around. She has been participating in unit routines and reports adequate sleep. Objective - General Observations Appearance: Well Groomed Stature: WNL Posture: WNL Eye Contact: Average Behavior/Activity: WNL - Interaction Observations Attitude Towards Examiner: Cooperative Stated Mood: Euthymic Affect: Bright Speech Pattern/Tone: Clear, Appropriate, Normal Volume Thought Process: Coherent Perception: WNL Thought Content: WNL Hallucination Type: None Delusion Type: None - Cognitive Function Orientation: A&O x 4 Level of Consciousness: Alert Cognition: WNL Estimated Intelligence: Normal Insight: WNL Judgment Within Normal Limits: Yes - Medication Compliance Cooperative with Inpatient Medication Regimen: Yes - Group Participation Participates in Group Activities: Yes Assessment - Assessment Inpatient DSM-V Dx: F12.122 Clinical Impression: 24yo black female with history of Bipolar I d/o and PTSD who presented to ED with concerns about psychosis. She had been engaging in high risk behaviors, including multiple sex partners and cannabis use. She has stabilized in this structured setting and denies SI or passive wish. She is future focused and goal oriented. Plan - Plan Treatment Plan: Name: CHRIS BYRD Birthdate: 1995 [id number] discharge to home pending outpatient appointments per Social Work. Lamotrigine increased to 100mg BID. Continue all other medications as previously ordered. Continued Medication Management: Continue Outpt Medication Medications: Current Medications Acetaminophen (Tylenol Tab*) 650 mg PO Q4H PRN PRN Reason: PAIN or TEMP > 101 F Al Hydrox/Mg Hydrox/Simethicone (Maalox Plus*) 30 ml PO Q4H PRN PRN Reason: INDIGESTION Cetirizine HCl (Zyrtec*) 10 mg PO DAILY [facility] Last Admin: 07/15/19 09:15 Dose: 10 mg Lamotrigine (Lamictal Tab(*)) 100 mg PO BID [facility] Last Admin: 07/15/19 09:16 Dose: 100 mg Multivitamins/Minerals (Theragran/Minerals Tab*) 1 tab PO DAILY [facility] Last Admin: 07/15/19 09:15 Dose: 1 tab Prazosin HCl (Minipress 1 Mg Cap) 1 mg PO BEDTIME [facility] Last Admin: 07/14/19 21:21 Dose: 1 mg Propranolol HCl (Inderal 20 Mg Tab) 20 mg PO BID PRN PRN Reason: anxiety Last Admin: 07/15/19 09:28 Dose: 20 mg Quetiapine Fumarate (Seroquel Tab*) 300 mg PO BEDTIME DANIEL Last Admin: 07/14/19 21:21 Dose: 300 mg - Discharge Plan Discharge Plan: Outpatient Follow Up Outpatient Program: [facility]
[2019-07-15 10:53] VITALS: BP 130/73
--- NOTE | 2019-07-15 18:49 | DS ---
CC: Dr. Bunch, [facility]; [facility] * DISCHARGE SUMMARY: DATE OF ADMISSION: 07/13/19 DATE OF DISCHARGE: 07/15/19 SUPERVISING PSYCHIATRIST: Dr. Jem Wooten.* (DICTATED BY DANK GAGE NP) DIAGNOSES: 1. Bipolar I disorder, most recent episode mixed. 2. Cannabis abuse with perceptual disturbances. CONDITION AT THE TIME OF DISCHARGE: Improved. The patient is euthymic with bright affect. She has been safe on all checks and denies suicidal ideation or passive wish. She reports much improved mood and thought process. She reports feeling ready to be discharged. She states she is motivated to utilize community resources and healthy habits. The patient is also encouraged to recognize her progress and strengths. She is jovial and generally pleasant to be around. She has been participating in unit routines and reports adequate sleep. The patient is discharged to home. MENTAL STATUS EXAM: Maria Luz is a 24-year-old black female who appears stated age. She is well groomed. She is casually dressed in her own clothing and sitting up with adequate posture. She is cooperative and answers questions fully. She is alert and oriented x3. Eye contact is good. Speech is soft, articulate, and spontaneous. Concentration good. Memory 3/3. Mood is euthymic with bright affect. No abnormal psychomotor activity noted. Thought process is circumstantial, logical and coherent. Thought content is negative for suicidal ideation or passive wish. She denies HI or . She denies auditory or visual hallucinations. There are no perceptual disturbances noted. Insight and judgment are fair, improved. She appears to have at least an average intellect and her fund of knowledge is excellent. INSTRUCTIONS GIVEN TO PATIENT: A. Medications: We increased lamotrigine from 150 mg at bedtime to 100 mg p.o. b.i.d. We added prazosin 1 mg p.o. q.h.s. for PTSD related sleep disturbances. She will remain on previous medications unchanged as follows: 1. Cetirizine 10 mg p.o. daily. 2. Propranolol 20 mg p.o. b.i.d. p.r.n. anxiety. 3. Quetiapine 300 mg p.o. q.h.s. B. Diet: Regular. C. Activity: Ambulation as tolerated. Tobacco cessation is not applicable. There are no pending labs or diagnostic studies. D. Followup care: The patient will return to [facility] and has an appointment to see Donna Pillai on 07/20/[address] Costello on , 07/29/19. She is encouraged to return to primary care provider, Dr. Bunch as needed, otherwise minimize exposure per current CDC pandemic recommendations. E. Substance use followup: The patient denies offer of assistance with substance use. There is no FDA approved medications for cannabis abuse. HOSPITAL COURSE: Part A: Reason for admission: Maria Luz presented to the emergency department with self-reported psychotic episode and a desire for mental health evaluation. HPI: She is a 24-year-old black female, domiciled, employed, who presents to the emergency department self-referred after an appointment at [facility]. She reports she went to [facility] demanding immediate assistance. Her primary counselor was not available and she agreed to meet with William via phone due to pandemic precautions. The patient reports much concern about psychotic and dissociative episodes. When typewriter assembler asked to clarify between psychotics and panic attacks, the patient identifies she is defensive and knows the difference between panic attack and something different. She states she knows how to calm herself down and has many coping skills for panic attacks. I encouraged her to discuss symptoms. She reports her face becomes numb. She has vision changes and then had tremors that shook the whole house. She states she tried to stop it by running outside and went into her car, but kept shaking, making the whole car shake. She reports she was having convulsions, screaming, crying, and flailing. She goes on to discuss frustration that her roommate did not help her. She inquires about typewriter assembler's knowledge of her time in the ED. She states she was screaming, flailing, demanding to be triaged to a higher priority and is frustrated that she was in the ED for longer than she deems appropriate. The patient reports the night before presenting to the clinic, she and her roommate decided to use marijuana to calm down because they were both experiencing extreme stress. The patient endorses using marijuana occasionally , but has difficulty knowing when to stop and "it goes from feeling good to putting me in a psychotic state." She reports seeing Dr. Yip at [facility] at the beginning of this month. They discussed that she was having poor sleep and the patient's quetiapine and Lamictal were increased. The patient reports she has been exercising, improving her diet, and working very hard on improving mental health generally. When given information that cannabis is likely worsening her symptoms, she is tearful, upset, and self- critical. The patient reports that quetiapine causes excessive sweating at night. I inquired about nightmares and she endorses such. She is circumstantial in regards to diagnoses and reports that she needs to have an accurate diagnosis. Part B: Psychiatric treatment rendered: The patient was admitted to adult behavioral services unit on voluntary status. Code status is full. She was placed on 15 minute checks for safety. She participated fully in supportive milieu, individual sessions with staff, and psychoeducational groups. She gave informed consent to increase lamotrigine to 100 mg b.i.d. and to add prazosin for PTSD related sleep disturbances. The patient reported to sleep well. She was calm and in behavioral control. She was generally pleasant to be around and well related. She denied need for ongoing hospitalization, reported much benefit from the milieu and conversations with treatment providers. She is motivated to utilize community resources as stated above. She reports desire to be discharged today. We discussed harm reduction and means restriction. The patient was also encouraged to recognize her progress and strength. DANK GAGE NP [id number]/[facility] #: [id number] ROSE
== END 2019-07-15 15:15 | disposition home or self-care (01) | DRG 753 ==
LOC: ED 10:26 → BSU 18:45
PROVIDERS: ADMIT Psychiatry & Neurology Psychiatry; ATTEND Psychiatry & Neurology Psychiatry
PROC: GZHZZZZ Group Psychotherapy (ICD-10-PCS; principal; 2019-07-14)
DX: F31.60 Bipolar disorder, current episode mixed, unspecified (principal); F12.122 Cannabis abuse with intoxication with perceptual disturbance; J45.909 Unspecified asthma, uncomplicated; F41.0 Panic disorder [episodic paroxysmal anxiety]; F43.10 Post-traumatic stress disorder, unspecified; Z79.899 Other long term (current) drug therapy
CPT/HCPCS: 36415; 80053; 80307; 80320; 80329; 81003; 84443; 84702; 85025; 90834; 99222; 99238; 99285; A9270-GY; G0480

== ENCOUNTER 2019-08-16 19:35 | Emergency (ER) | payer BC ==
--- OUTSIDE RECORDS SUMMARY | 2019-08-16 19:40 | XMS REPORT | Continuity of Care Document ---
:1995 External Reference #:[id number] Author Name Vonnie Bunch, DO Address [address] [place] [id number] Problems Active Problems Provider Date Bipolar disorder Onset: 12/03/2018 Eczema Onset: 07/02/2018 Vitamin D deficiency Onset: 07/02/2018 Allergic rhinitis Onset: 07/02/2018 Social History Type Date Description Comments Sex Unknown Allergies, Adverse Reactions, Alerts Active Allergies Reaction Severity Comments Date Melons Lip swelling 01/01/2019 Medications Active Medications SIG Qnty Indications Ordering Provider Date Azithromycin 4 tabs (1gram 4tabs [facility], 08/07/2019 250mg total dose) once DO Tablets Seroquel 1 tab by mouth 90tabs [facility], 07/27/2019 300mg Tablets every day at DO bedtime Lamotrigine one tab twice [facility], 07/25/2019 100mg daily DO Tablets Prazosin HCL take 1 capsule 90caps [facility], 07/25/2019 1mg by mouth at DO Capsules bedtime Propranolol HCL 1 twice a day as 60tabs [facility], 05/17/2019 20mg needed DO Tablets Naproxen 1 twice daily 60tabs Unknown 11/03/2018 500mg Tablets Oral Fluticasone 2 sprays daily 16units Unknown 08/28/2018 Propionate Nasal 50mcg/Act Suspension Triamcinolone Apply twice 1units Unknown 08/28/2018 Acetonide daily prn 0.5% Cream External Multiple Vitamin 1 daily Oral 30tabs Unknown 07/02/2018 Tablets Proventil HFA Inhalation; 2 1units Unknown 07/02/2018 puffs Q 4h prn 108(90Base) mcg/Act Aerosol History Medications Seroquel 300MG 1 tab by mouth every day at Unknown 05/17/2019 - 2019 bedtime Immunizations CPT Code Status Date Vaccine Lot # [id number] Given 2018 Flu < 65 years Vital Signs Date Vital Result Comment 07/27/2019 9:52am Height 69 inches 5'9" Weight 159.00 lb BMI (Body Mass Index) 23.5 kg/m2 02/05/2019 9:22am BP Systolic 110 mmHg BP Diastolic 60 mmHg Height 68.5 inches 5'8.50" Weight 173.00 lb Heart Rate 80 /min Body Temperature 96.8 F O2 % BldC Oximetry 98 % BMI (Body Mass Index) 25.9 kg/m2 Results Test Acquired Date Facility Test Result H/L Range Note GC/Chlamydia 08/04/2019 [facility] GCCHL Disclaimer (SEE NOTE) 1 Amplified Rna [address] [place] [address] [phone] Chlamydia trachomatis Emilie Positive Abnormal Negative Neisseria gonorrhoeae (GC) Emilie Negative Negative Laboratory test 08/04/2019 [facility] Miscellaneous See Comment [address] [place] [address] [phone] CBC Auto Diff 07/13/2019 [facility] White Blood Count 5.8 10^3/ uL Normal 3.5- [address] 10[address]8 [place], [place] [address] [phone] Red Blood Count 4.27 10^6/uL Normal 3.70-4.87 Hemoglobin 13.9 g/dL Normal 12.0-16.0 Hematocrit 41 % Normal 35-47 Mean Corpuscular Volume 95 fL Normal 80-97 Mean Corpuscular Hemoglobin 33 pg High 27-31 Mean Corpuscular HGB Conc 34 g/dL Normal 31-36 Red Cell Distribution Width 13 % Normal 10-15 Platelet Count 222 10^3/uL Normal 150-450 Mean Platelet Volume 7.9 fL Normal 7.4-10.4 Abs Neutrophils 3.8 10^3/uL Normal 1.5-7.7 Abs Lymphocytes 1.5 10^3/uL Normal 1.0-4.8 Abs Monocytes 0.5 10^3/uL Normal 0-0.8 Abs Eosinophils 0.1 10^3/uL Normal 0-0.6 Abs Basophils 0.0 10^3/uL Normal 0-0.2 Abs Nucleated RBC 0.0 10^3/uL Granulocyte % 65.4 % Lymphocyte % 25.3 % Monocyte % 7.9 % Eosinophil % 0.9 % Basophil % 0.5 % Nucleated Red Blood Cells % 0.0 Comp Metabolic 07/13/2019 [facility] Sodium 139 mmol/L Normal 135-145 Panel [address] [place] [address] [phone] Potassium 3.8 mmol/L Normal 3.5-5.0 Chloride 104 mmol/L Normal 101-111 Co2 Carbon Dioxide 27 mmol/L Normal 22-32 Anion Gap 8 mmol/L Normal 2-11 Glucose 91 mg/dL Normal 70-100 Blood Urea Nitrogen 8 mg/dL Normal 6-24 Creatinine 1.23 mg/dL High 0.51-0.95 BUN/Creatinine Ratio 6.5 Low 8-20 Calcium 10.0 mg/dL Normal 8.6-10.3 Total Protein 7.5 g/dL Normal 6.4-8.9 Albumin 4.9 g/dL Normal 3.2-5.2 Globulin 2.6 g/dL Normal 2-4 Albumin/Globulin Ratio 1.9 Normal 1-3 Total Bilirubin 0.60 mg/dL Normal 0.2-1.0 Alkaline Phosphatase 50 U/L Normal 34-104 Alt 12 U/L Normal 7-52 Ast 22 U/L Normal 13-39 Egfr Non- 52.8 >60 Egfr 63.9 >60 3 Laboratory test finding 07/13/2019 [facility] Alcohol 12 mg/dL High <10 [address] [place] [address] [phone] Salicylate < 2.50 mg/dL <30 Acetaminophen < 15 g/mL 4 TSH (Thyroid Stim Horm) 1.79 mcIU/mL Normal 0.34-5.60 Urinalysis Profile 07/13/2019 [facility] Urine Color Yellow [address] [place], [place] [address] [phone] Urine Appearance Clear Urine Specific [place] 1.016 Normal 1.010-1.030 Urine pH 6.0 Normal 5-9 Urine Urobilinogen Negative Negative Urine Ketones Negative Negative Urine Protein Negative Negative Urine Leukocytes Negative Negative Urine Blood Negative Negative Urine Nitrite Negative Negative Urine Bilirubin Negative Negative Urine Glucose Negative Negative Urine Drug 07/13/2019 [facility] Urine None Detected None Detect SCR ED & [address] [facility] A[place] [address] Screen [phone] Urine Barbiturates Screen None Detected None Detect Urine Benzodiazepine Screen None Detected None Detect Urine Cannabinoids Screen Presumptive Posi <SEE NOTE> Abnormal None Detect 5 Urine Cocaine Screen None Detected None Detect Urine Opiates Screen None Detected None Detect Urine Phencyclidine Screen None Detected None Detect 6 Laboratory test 07/13/2019 [facility] HCG < 0.60 [address] mIU/[place] [address] [phone] CBC Auto Diff 05/11/2019 [facility] White Blood 5.6 10^3/uL Normal 3.5-[address] Count 0.8 [place] [address] [phone] Red Blood Count 4.11 10^6/uL Normal 3.70-4.87 Hemoglobin 13.4 g/dL Normal 12.0-16.0 Hematocrit 39 % Normal 35-47 Mean Corpuscular Volume 94 fL Normal 80-97 Mean Corpuscular Hemoglobin 33 pg High 27-31 Mean Corpuscular HGB Conc 35 g/dL Normal 31-36 Red Cell Distribution Width 13 % Normal 10-15 Platelet Count 204 10^3/uL Normal 150-450 Mean Platelet Volume 7.8 fL Normal 7.4-10.4 Abs Neutrophils 3.7 10^3/uL Normal 1.5-7.7 Abs Lymphocytes 1.4 10^3/uL Normal 1.0-4.8 Abs Monocytes 0.4 10^3/uL Normal 0-0.8 Abs Eosinophils 0.1 10^3/uL Normal 0-0.6 Abs Basophils 0.0 10^3/uL Normal 0-0.2 Abs Nucleated RBC 0.0 10^3/uL Granulocyte % 66.6 % Lymphocyte % 24.5 % Monocyte % 7.5 % Eosinophil % 1.2 % Basophil % 0.2 % Nucleated Red Blood Cells % 0.0 Comp Metabolic 05/11/2019 [facility] Sodium 139 mmol/L Normal 135-[address] [place] [address] [phone] Potassium 3.7 mmol/L Normal 3.5-5.0 Chloride 106 mmol/L Normal 101-111 Co2 Carbon Dioxide 29 mmol/L Normal 22-32 Anion Gap 4 mmol/L Normal 2-11 Glucose 98 mg/dL Normal 70-100 Blood Urea Nitrogen 11 mg/dL Normal 6-24 Creatinine 0.95 mg/dL Normal 0.51-0.95 BUN/Creatinine Ratio 11.6 Normal 8-20 Calcium 9.1 mg/dL Normal 8.6-10.3 Total Protein 6.8 g/dL Normal 6.4-8.9 Albumin 4.2 g/dL Normal 3.2-5.2 Globulin 2.6 g/dL Normal 2-4 Albumin/Globulin Ratio 1.6 Normal 1-3 Total Bilirubin 0.40 mg/dL Normal 0.2-1.0 Alkaline Phosphatase 42 U/L Normal 34-104 Alt 10 U/L Normal 7-52 Ast 15 U/L Normal 13-39 Egfr Non- 71.1 >60 Egfr 86.0 >60 8 Laboratory 05/11/2019 [facility] TSH (Thyroid 1.06 Normal 0.34 -5.60 test finding [address] Stim Horm) mcIU/[place] [address] [phone] Acetaminophen < 15 g/mL 9 Alcohol < 10 mg/dL Normal <10 Salicylate < 2.50 mg/dL <30 Urinalysis Profile 05/11/2019 [facility] Urine Color Yellow [address] [place] [address] [phone] Urine Appearance Cloudy Urine Specific [place] 1.013 Normal 1.010-1.030 Urine pH 6.0 Normal 5-9 Urine Urobilinogen Negative Negative Urine Ketones Negative Negative Urine Protein Negative Negative Urine Leukocytes Trace Abnormal Negative Urine Blood 2+ Abnormal Negative Urine Nitrite Negative Negative Urine Bilirubin Negative Negative Urine Glucose Negative Negative Urine White Blood Cell Trace(0-5/hpf) Absent Urine Red Blood Cell 1+(3-5/hpf) Abnormal Absent Urine Bacteria Absent Absent Urine Squamous Epithelial Cell Present Abnormal Absent Urine Drug 05/11/2019 [facility] Urine None Detected None Detect SCR ED & [address] A[place] [address] Screen [phone] Urine Barbiturates Screen None Detected None Detect Urine Benzodiazepine Screen None Detected None Detect Urine Cannabinoids Screen Presumptive Posi <SEE NOTE> Abnormal None Detect 10 Urine Cocaine Screen None Detected None Detect Urine Opiates Screen None Detected None Detect Urine Phencyclidine Screen None Detected None Detect 11 Urine Culture And 05/11/2019 [facility] Urine Culture SEE RESULT [address] [place] [address] [phone] 1 As with all diagnostic procedures, the laboratory results obtained should be used in conjunction with other clinical information available to the physician, including confirmation by another method, as applicable. 2 Test Result Flag Unit RefValue Syphilis Total Ab w/ Reflex, Nonreactive S No serologic evidence of infection with T. pallidum (syphilis). Repeat testing may be considered in patients with suspected acute or primary syphilis in 2-4 weeks. For additional information on interpretation of the syphilis reverse algorithm and results, see: [email or web address] REFERENCE VALUE Nonreactive Test Performed by: [facility] [id number] [place] [address] Urban Anthropologist: Reji Rodriguez M.D. Ph.D.; IA# [id number] 3 Because ethnic data is not always readily available, this report includes an eGFR for both -Americans and non- Americans. The National Kidney Disease Education Program (NKDEP) does not endorse the use of the MDRD equation for patients that are not between the ages of 18 and 70, are , have extremes of body size, muscle mass, or nutritional status, or are non- or non-. According to the National Kidney Foundation, irrespective of diagnosis, the stage of the disease is based on the level of kidney function: Stage Description GFR(mL/min/1.73 m(2)) 1 Kidney damage with normal or decreased GFR 90 2 Kidney damage with mild decrease in GFR 60-89 3 Moderate decrease in GFR 30-59 4 Severe decrease in GFR 15-29 5 Kidney failure <15 (or dialysis) 4 Therapeutic concentration: <50 ug/mL Toxic concentration: >120 ug/mL 5 Presumptive Positive Presumptive positive results are unconfirmed. 6 The urine specimen was tested at the listed cutoffs: Drug class test level (ng/mL) Amphetamines 500 Barbiturates 200 Benzodiazepine metabolites 200 Cocaine metabolites 150 Cannabinoids 50 Opiates 300 Pcp 25 Specimen was received without chain of custody. Results should be used for medical purposes only. 7 <5.0 Negative 5.0 - 25.0 Indeterminate (Repeat testing recommended after 72 hours) >25.0 Positive Perimenopausal women can display HCG levels of up to 20 mIU/mL 8 Because ethnic data is not always readily available, this report includes an eGFR for both -Americans and non- Americans. The National Kidney Disease Education Program (NKDEP) does not endorse the use of the MDRD equation for patients that are not between the ages of 18 and 70, are , have extremes of body size, muscle mass, or nutritional status, or are non- or non-. According to the National Kidney Foundation, irrespective of diagnosis, the stage of the disease is based on the level of kidney function: Stage Description GFR(mL/min/1.73 m(2)) 1 Kidney damage with normal or decreased GFR 90 2 Kidney damage with mild decrease in GFR 60-89 3 Moderate decrease in GFR 30-59 4 Severe decrease in GFR 15-29 5 Kidney failure <15 (or dialysis) 9 Therapeutic concentration: <50 ug/mL Toxic concentration: >120 ug/mL 10 Presumptive Positive Presumptive positive results are unconfirmed. 11 The urine specimen was tested at the listed cutoffs: Drug class test level (ng/mL) Amphetamines 500 Barbiturates 200 Benzodiazepine metabolites 200 Cocaine metabolites 150 Cannabinoids 50 Opiates 300 Pcp 25 Specimen was received without chain of custody. Results should be used for medical purposes only. 12 SEE RESULT BELOW Name: ROCHELLECHRIS : [address]: Edson Melton MD Acct: [id number] Unit: [id number] AGE: 24 Location: [place] [address] Re05/12/19 SEX: F Status: ADM IN SPEC: [id number] ALFRED: 05/12/[address]: Benji Osuna MD REQ: [id number] RECD: 05/12/19 STATUS: COMP MARLON DR: Vonnie Bunch DO _ SOURCE: URINE SPDESC: ORDERED: Urine Culture Procedure Result Reported Site Urine Culture Final 05/13/19- 1131 ML No growth of clinically significant organisms * ML - Main Lab . END OF REPORT DEPARTMENT OF PATHOLOGY, [address] [place] [address] Vaibhav Logan M.D. Director [facility] # [id number] Procedures Description No Information Available Medical Devices Description No Information Available Encounters Type Date Location Provider Dx Diagnosis Office Visit 07/27/2019 [facility] Vonnie Bunch, F31.9 Bipolar disorder, 8:45a unspecified Z11.3 Encntr screen for infections w sexl mode of transmiss Z11.4 Encounter for screening for human immunodeficiency virus M25.562 Pain in left knee M25.561 Pain in right knee Assessments Date Code Description Provider 07/27/2019 F31.9 Bipolar disorder, unspecified Vonnie Bunch, DO 07/27/2019 Z11.3 Encounter for screening for infections with a Vonnie Bunch, DO predominantly sexual mode of transmission 07/27/2019 Z11.4 Encounter for screening for human Vonnie Bunch, immunodeficiency virus [HIV] 07/27/2019 M25.562 Pain in left knee Vonnei Bunch, DO 07/27/2019 M25.561 Pain in right knee Vonnie Bunch, DO Plan of Treatment No Information Available Functional Status Description No Information Available Mental Status Description No Information Available Referrals Description No Information Available
--- OUTSIDE RECORDS SUMMARY | 2019-08-16 19:40 | XMS REPORT ---
:1995 Author Organization [facility] Care Team Providers Name Role Phone Katt Krause Primary Care Physician Unavailable Allergies, Adverse Reactions, Alerts Allergy Code CodeSystem Reaction Severity Criticality Status Start Substance Date Moderate Medications Medication Medication Medication Start Stop Route Dose Status Fill Code CodeSystem Date Date Instructions RxNorm Problems Problem Name Code CodeSystem Alternate Alternate Start End Status Narrative Code CodeSystem Date Date Bipolar [id number] SNOMED-CT Active affective 6-11 disorder, unspecified Relevant diagnostic tests/laboratory data Narrative No Information Procedures Procedure Code CodeSystem Target Date of Status Service Device Device Device Name Site Procedure Delivery Code Name UID Location SNOMED-CT () 2018-10-06 complete Mental d [facility]- [address], [id number] SNOMED-CT () 2018-10-13 complete Mental d Health- [address], [id number] [phone] Psychotherap [id number] SNOMED-CT () 2018-10-27 complete Mental y, 45 04 d Health- minutes with [address], [id number] [phone] Psychotherap [id number] SNOMED-CT () 2018-11-10 complete Mental y, 45 04 d Health- minutes with [address], [id number] [phone] Psychotherap 133353 SNOMED-CT () 2018-11-17 complete Mental y, 45 04 d Health- minutes with [address], [id number] [phone] Psychotherap [id number] SNOMED-CT () 2018-11-03 complete Mental y, 45 04 d Health- minutes with [address], [id number] [phone] Psychiatric 381371 SNOMED-CT () 2018-11-23 complete Mental diagnostic 85 d Health- evaluation Ness with [address], [id number] [phone] Psychotherap [id number] SNOMED-CT () 2018-11-24 complete Mental y, 45 04 d Health- minutes with Damián patient [address], [id number] [phone] Psychotherap [id number] SNOMED-CT () 2018-12-08 complete Mental y, 45 04 d Health- minutes with Damián patient [address], [id number] [phone] Office or [id number] SNOMED-CT () 2019-01-20 complete Mental other 7 d Health- outpatient Ness visit for [address], of an NH, established [id number] patient, [phone] which requires at least 2 of these 3 benites components: An expanded problem focused history; An expanded problem focused examination; Medical decision making of low Psychotherap [id number] SNOMED-CT () 2019-01-21 complete Mental y, 45 04 d Health- minutes with Ness patient [address], [id number] [phone] SNOMED-CT () 2019-01-29 complete Mental d Health- [address], [id number] [phone] Psychotherap 568251 SNOMED-CT () 2019-02-04 complete Mental y, 45 04 d Health- minutes with Damián patient [address], [id number] [phone] SNOMED-CT () 2019-02-23 complete Mental d Health- [address], [id number] [phone] Psychotherap 758085 SNOMED-CT () 2019-03-02 complete Mental y, 45 04 d Health- minutes with Ness patient [address], [id number] [phone] Psychotherap 283941 SNOMED-CT () 2019-03-16 complete Mental y, 45 04 d Health- minutes with Damián patient [address], [id number] [phone] SNOMED-CT () 2019-03-24 complete Mental d Health- [address], [id number] [id number] SNOMED-CT () 2019-04-13 complete Mental d Health- [address], [id number] [phone] Psychotherap 083484 SNOMED-CT () 2019-04-27 complete Mental y, 45 04 d Health- minutes with Ness patient [address], [id number] [phone] Psychotherap 010238 SNOMED-CT () 2019-05-06 complete Mental y, 45 04 d Health- minutes with Ness patient [address], [id number] [phone] SNOMED-CT () 2019-05-11 complete Mental d Health- [address], [id number] [phone] Office or [id number] SNOMED-CT () 2019-05-20 complete Mental other 7 d Health- outpatient Ness visit for [address], [facility], established [id number] patient, [phone] which requires at least 2 of these 3 benites components: An expanded problem focused history; An expanded problem focused examination; Medical decision making of low Psychotherap 288708 SNOMED-CT () 2019-06-02 complete Mental y, 45 04 d Health- minutes with Ness patient [address], [phone] [phone] Psychotherap 508402 SNOMED-CT () 2019-05-18 complete Mental y, 45 04 d Health- minutes with Damián patient [address], [id number] [phone] SNOMED-CT () 2019-06-23 complete Mental d Health- [address], [id number] [phone] Office or [id number] SNOMED-CT () 2019-06-30 complete Mental other 6 d Health- outpatient Damián visit for [address], established [id number] patient, [phone] which requires at least 2 of these 3 benites components: A problem focused history; A problem focused examination; Straightforw elizabeth medical decision making. Counselin Encounters/Encounter Diagnoses Encounter Name Encounter Diagnosis Diagnosis Diagnosis Date of Service Code Code Name CodeSystem Diagnosis Delivery Location Psychotherapy - 12400 [id number] Bipolar SNOMED-CT 2019-07-08 Behavioral Individual 30 affective Health min disorder, Clinic , , unspecified , Vital Signs No Information Social History Element Description Description Start End Code CodeSystem AdditionalInfo Date Date SexAssignedAtBirth Female 1994-04 F AdministrativeGender 0-15 Hospital Discharge Instructions Reason For Referral Medical Equipment FDA Assessments
--- OUTSIDE RECORDS SUMMARY | 2019-08-16 19:40 | XMS REPORT | Continuity of Care Document ---
:1995 External Reference #:[id number] Author Problems Active Problems Provider Date Bipolar disorder Onset: 12/03/2018 Eczema Onset: 07/02/2018 Vitamin D deficiency Onset: 07/02/2018 Allergic rhinitis Onset: 07/02/2018 Social History Type Date Description Comments Sex Unknown Allergies, Adverse Reactions, Alerts Active Allergies Reaction Severity Comments Date Melons Lip swelling 01/01/2019 Medications Active Medications SIG Qnty Indications Ordering Provider Date Azithromycin 4 tabs (1gram 4tabs [facility], 08/07/2019 250mg total dose) once DO Tablets Seroquel 1 tab by mouth 90tabs Vonnie Karnow, 07/27/2019 300mg Tablets every day at DO bedtime Lamotrigine one tab twice Vonnie Karw, 07/25/2019 100mg daily DO Tablets [facility] HCL [facility], 07/25/2019 1mg by mouth at DO Capsules bedtime Propranolol HCL 1 twice a day as 60tabs Vonnie Karnow, 05/17/2019 20mg needed DO Tablets Naproxen 1 [...] CPT Code Status Date Vaccine Lot # [id number] Given 2018 Flu < 65 years Vital [...] Test Result H/L Range Note GC/Chlamydia 08/04/2019 [facility] GCCHL Disclaimer (SEE NOTE) 1 Amplified Rna [address] [place] [address] [phone] Chlamydia trachomatis Emilie Positive Abnormal Negative Neisseria gonorrhoeae (GC) Emilie Negative Negative Laboratory 08/04/2019 [facility] Miscellaneous See Comment [address] [place] [address] [phone] Laboratory 08/04/2019 [facility] Covid19, PCR Undetected Undetected 3 test finding [address] [place], [place] [address] [phone] CBC Auto 07/13/2019 [facility] White Blood 5.8 10^3/uL Normal 3.5-10.[address] [place] [address] [phone] Red Blood Count 4.27 10^6/uL Normal 3.70-4.87 [...] Blood Cells % 0.0 Comp Metabolic 07/13/2019 [facility] Sodium 139 mmol/L Normal 135-145 Panel [address] [place] [address] [phone] Potassium 3.8 mmol/L Normal 3.5-5.0 Chloride 104 [...] Egfr Non- 52.8 >60 Egfr 63.9 >60 4 Laboratory test finding 07/13/2019 [facility] Alcohol 12 mg/dL High <10 [address] [place] [address] [phone] Salicylate < 2.50 mg/dL <30 Acetaminophen < 15 g/mL 5 TSH (Thyroid Stim Horm) 1.79 mcIU/mL Normal 0.34-5.60 Urinalysis Profile 07/13/2019 [facility] Urine Color Yellow [address] [place] [address] [phone] Urine Appearance Clear Urine Specific [place] 1.016 Normal 1.010-1.030 Urine pH 6.0 Normal 5-9 Urine Urobilinogen Negative Negative Urine Ketones Negative Negative Urine Protein Negative Negative Urine Leukocytes Negative Negative Urine Blood Negative Negative Urine Nitrite Negative Negative Urine Bilirubin Negative Negative Urine Glucose Negative Negative Urine Drug 07/13/2019 [facility] Urine None Detected None Detect SCR ED & [address] [facility] [place] [address] Screen [phone] Urine Barbiturates Screen None Detected None Detect Urine Benzodiazepine Screen None Detected None Detect Urine Cannabinoids Screen Presumptive Posi <SEE NOTE> Abnormal None Detect 6 Urine Cocaine Screen None Detected None Detect Urine Opiates Screen None Detected None Detect Urine Phencyclidine Screen None Detected None Detect 7 Laboratory test 07/13/2019 [facility] HCG < 0.[address] mIU/[place] [address] [phone] CBC Auto Diff 05/11/2019 [facility] White Blood 5.6 10^3/uL Normal 3.5-[address] Count 0.8 [place] [address] [phone] Red Blood Count 4.11 10^6/uL Normal 3.70-4.87 [...] Blood Cells % 0.0 Comp Metabolic 05/11/2019 [facility] Sodium 139 mmol/L Normal 135-[address] [place] [address] [phone] Potassium 3.7 mmol/L Normal 3.5-5.0 Chloride 106 [...] Egfr Non- 71.1 >60 Egfr 86.0 >60 9 Laboratory 05/11/2019 [facility] TSH (Thyroid 1.06 Normal 0.34 -5.[address] Horm) mcIU/[place] [address] [phone] Acetaminophen < 15 g/mL 10 Alcohol < 10 mg/dL Normal <10 Salicylate < 2.50 mg/dL <30 Urinalysis Profile 05/11/2019 [facility] Urine Color Yellow [address] [place], [place] [id number] [phone] Urine Appearance Cloudy Urine Specific [place] 1.013 Normal 1.010-1.030 Urine pH 6.0 Normal [...] Cell Present Abnormal Absent Urine Drug 05/11/2019 [facility] Urine None Detected None Detect SCR ED & [address] [facility] [place] [address] Screen [phone] Urine Barbiturates Screen None Detected None Detect Urine Benzodiazepine Screen None Detected None Detect Urine Cannabinoids Screen Presumptive Posi <SEE NOTE> Abnormal None Detect 11 Urine Cocaine Screen None Detected None Detect Urine Opiates Screen None Detected None Detect Urine Phencyclidine Screen None Detected None Detect 12 Urine Culture And 05/11/2019 [facility] Urine Culture SEE RESULT [address] [place] [id number] [phone] 1 As with all diagnostic procedures, the [...] the syphilis reverse algorithm and results, see: [email or web address]-[email or web address].[email or web address] REFERENCE VALUE Nonreactive Test Performed by: [place] [address] Sports Director: Reji Rodriguez M.D. Ph.D.; CLIA# [id number] 3 SARS-CoV-2 RNA is not detected. ADDITIONAL INFORMATION Testing was performed using the diana SARS-CoV-2 assay ([employer] on the diana 6800 System. Fact sheets for this Emergency Use Authorization (EUA) assay can be found at the following links: For Healthcare Providers: https://www.fda.gov/media/063135/download For Patients: https://www.fda.gov/media/175471/download Test Performed by: [place] [address] Sports Director: Reji Rodriguez M.D. Ph.D.; CLIA# [id number] 4 Because ethnic data is not always readily [...] 15-29 5 Kidney failure <15 (or dialysis) 5 Therapeutic concentration: <50 ug/mL Toxic concentration: >120 ug/mL 6 Presumptive Positive Presumptive positive results are unconfirmed. 7 The urine specimen was tested at the listed cutoffs: Drug class test level (ng/mL) Amphetamines 500 Barbiturates 200 Benzodiazepine metabolites 200 Cocaine metabolites 150 Cannabinoids 50 Opiates 300 Pcp 25 Specimen was received without chain of custody. Results should be used for medical purposes only. 8 <5.0 Negative 5.0 - 25.0 Indeterminate (Repeat testing recommended after 72 hours) >25.0 Positive Perimenopausal women can display HCG levels of up to 20 mIU/mL 9 Because ethnic data is not always readily [...] 15-29 5 Kidney failure <15 (or dialysis) 10 Therapeutic concentration: <50 ug/mL Toxic concentration: >120 ug/mL 11 Presumptive Positive Presumptive positive results are unconfirmed. 12 The urine specimen was tested at the listed cutoffs: Drug class test level (ng/mL) Amphetamines 500 Barbiturates 200 Benzodiazepine metabolites 200 Cocaine metabolites 150 Cannabinoids 50 Opiates 300 Pcp 25 Specimen was received without chain of custody. Results should be used for medical purposes only. 13 SEE RESULT BELOW Name: CHRIS RIVERA : [address]: Edson Melton MD Acct: [id number] Unit: [id number] AGE: 24 Location: [address] Re05/12/19 SEX: F Status: ADM IN SPEC: [id number] ALFRED: 05/12/[address] [facility] [address]: Benji Osuna MD REQ: [id number] RECD: 05/12/19 STATUS: DIANNA MASON DR: Vonnie Bunch DO _ SOURCE: URINE SPDESC: ORDERED: Urine Culture Procedure Result Reported Site Urine Culture Final 05/13/19- 1131 ML No growth of clinically significant organisms * ML - Main Lab . END OF REPORT DEPARTMENT OF PATHOLOGY, [address] [place] [address] Vaibhav Logan M.D. Director [facility] # [id number] Procedures Description No Information Available Medical Devices Description No Information Available Encounters Type Date Location Provider Dx Diagnosis Office Visit 07/27/2019 [facility] Main Vonnie KarmerarilauraDO F31.9 Bipolar disorder, 8:45a unspecified Z11.3 Encntr screen for infections w sexl mode of transmiss Z11.4 Encounter for screening for human immunodeficiency virus M25.562 Pain in left knee M25.561 Pain in right knee Assessments Date Code Description Provider 07/27/2019 F31.9 Bipolar disorder, unspecified Vonnie Karsusie, DO 07/27/2019 Z11.3 Encounter for screening for infections with a Vonnie Bunch DO predominantly sexual mode of transmission 07/27/2019 Z11.4 Encounter for screening for human Vonnie KarDO susie immunodeficiency virus [HIV] 07/27/2019 M25.562 Pain in left knee Vonnie Karmerariw, DO 07/27/2019 M25.561 Pain in right knee Vonnie Karsusie DO Plan of Treatment No Information Available Functional Status Description No Information Available Mental Status Description No Information Available Referrals Description No Information Available
--- OUTSIDE RECORDS SUMMARY | 2019-08-16 19:40 | XMS REPORT | Continuity of Care Document ---
:1995 External Reference #:[id number] Author Name Vonnie Bunch DO (transmitted by agent of provider Selena Hua) Address [address] [place] [id number] Problems Active Problems Provider Date Bipolar disorder Onset: 12/03/2018 Eczema Onset: 07/02/2018 Vitamin D deficiency Onset: 07/02/2018 Allergic rhinitis Onset: 07/02/2018 Social History Type Date Description Comments Sex Unknown Allergies, Adverse Reactions, Alerts Active Allergies Reaction Severity Comments Date Melons Lip swelling 01/01/2019 Medications Active Medications SIG Qnty Indications Ordering Provider Date Seroquel 1 tab by mouth 90tabs Vonnie Karsusie, 07/27/2019 300mg Tablets every day at DO bedtime Lamotrigine one tab twice Vonnie Darrellsusie, 07/25/2019 100mg daily DO Tablets Prazosin HCL take 1 capsule 90caps Vonnie Bunch, 07/25/2019 1mg by mouth at DO Capsules bedtime Propranolol HCL 1 twice a day as 60tabs Vonnie Darrellsusie, 05/17/2019 20mg needed DO Tablets Naproxen 1 [...] CPT Code Status Date Vaccine Lot # [id number] Given 2018 Flu < 65 years Vital [...] Date Facility Test Result H/L Range Note CBC Auto 07/13/2019 [facility] White Blood 5.8 10^3/uL Normal 3.5-10.[address] [place] [address] [phone] Red Blood Count 4.27 10^6/uL Normal 3.70-4.87 [...] Blood Cells % 0.0 Comp Metabolic 07/13/2019 [facility] Sodium 139 mmol/L Normal 135-[address] [place] [address] [phone] Potassium 3.8 mmol/L Normal 3.5-5.0 Chloride 104 [...] Egfr Non- 52.8 >60 Egfr 63.9 >60 1 Laboratory test finding 07/13/2019 [facility] Alcohol 12 mg/dL High <[address] [place] [address] [phone] Salicylate < 2.50 mg/dL <30 Acetaminophen < 15 g/mL 2 TSH (Thyroid Stim Horm) 1.79 mcIU/mL Normal 0.34-5.60 Urinalysis Profile 07/13/2019 [facility] Urine Color Yellow [address] [place], [place] [address] [phone] Urine Appearance Clear Urine Specific [place] 1.016 Normal 1.010-1.030 Urine pH 6.0 Normal 5-9 Urine Urobilinogen Negative Negative Urine Ketones Negative Negative Urine Protein Negative Negative Urine Leukocytes Negative Negative Urine Blood Negative Negative Urine Nitrite Negative Negative Urine Bilirubin Negative Negative Urine Glucose Negative Negative Urine Drug 07/13/2019 [facility] Urine None Detected None Detect SCR ED & [address] [facility] [place] [address] Screen [phone] Urine Barbiturates Screen None Detected None Detect Urine Benzodiazepine Screen None Detected None Detect Urine Cannabinoids Screen Presumptive Posi <SEE NOTE> Abnormal None Detect 3 Urine Cocaine Screen None Detected None Detect Urine Opiates Screen None Detected None Detect Urine Phencyclidine Screen None Detected None Detect 4 Laboratory test 07/13/2019 [facility] HCG < 0.60 [address] mIU/[place] [address] [phone] CBC Auto Diff 05/11/2019 [facility] White Blood 5.6 10^3/uL Normal 3.5-[address] Count 0.8 [place] [address] [phone] Red Blood Count 4.11 10^6/uL Normal 3.70-4.87 [...] Blood Cells % 0.0 Comp Metabolic 05/11/2019 [facility] Sodium 139 mmol/L Normal 135-[address] [place] [address] [phone] Potassium 3.7 mmol/L Normal 3.5-5.0 Chloride 106 [...] Egfr Non- 71.1 >60 Egfr 86.0 >60 6 Laboratory 05/11/2019 [facility] TSH (Thyroid 1.06 Normal 0.34 -5.60 test finding [address] Stim Horm) mcIU/[place] [address] [phone] Acetaminophen < 15 g/mL 7 Alcohol < 10 mg/dL Normal <10 Salicylate < 2.50 mg/dL <30 Urinalysis Profile 05/11/2019 [facility] Urine Color Yellow [address] [place] [address] [phone] Urine Appearance Cloudy Urine Specific [place] 1.013 Normal 1.010-1.030 Urine pH 6.0 Normal [...] Cell Present Abnormal Absent Urine Drug 05/11/2019 [facility] Urine None Detected None Detect SCR ED & [address] [facility] [place] [address] Screen [phone] Urine Barbiturates Screen None Detected None Detect Urine Benzodiazepine Screen None Detected None Detect Urine Cannabinoids Screen Presumptive Posi <SEE NOTE> Abnormal None Detect 8 Urine Cocaine Screen None Detected None Detect Urine Opiates Screen None Detected None Detect Urine Phencyclidine Screen None Detected None Detect 9 Urine Culture And 05/11/2019 [facility] Urine Culture SEE RESULT [address] [place] [address] [phone] Order 02/05/2019 [facility] <pending> Therapy Evaluate And Treat 1 Because ethnic data is not always readily [...] 15-29 5 Kidney failure <15 (or dialysis) 2 Therapeutic concentration: <50 ug/mL Toxic concentration: >120 ug/mL 3 Presumptive Positive Presumptive positive results are unconfirmed. 4 The urine specimen was tested at the listed cutoffs: Drug class test level (ng/mL) Amphetamines 500 Barbiturates 200 Benzodiazepine metabolites 200 Cocaine metabolites 150 Cannabinoids 50 Opiates 300 Pcp 25 Specimen was received without chain of custody. Results should be used for medical purposes only. 5 <5.0 Negative 5.0 - 25.0 Indeterminate (Repeat testing recommended after 72 hours) >25.0 Positive Perimenopausal women can display HCG levels of up to 20 mIU/mL 6 Because ethnic data is not always readily [...] 15-29 5 Kidney failure <15 (or dialysis) 7 Therapeutic concentration: <50 ug/mL Toxic concentration: >120 ug/mL 8 Presumptive Positive Presumptive positive results are unconfirmed. 9 The urine specimen was tested at the listed cutoffs: Drug class test level (ng/mL) Amphetamines 500 Barbiturates 200 Benzodiazepine metabolites 200 Cocaine metabolites 150 Cannabinoids 50 Opiates 300 Pcp 25 Specimen was received without chain of custody. Results should be used for medical purposes only. 10 SEE RESULT BELOW Name: CHRIS BYRD : [address]: Edson Melton MD Acct: [id number] Unit: [id number] AGE: 24 Location: [facility] Re05/12/19 SEX: F Status: ADM IN SPEC: [id number] ALFRED: 05/12/[address]: Benji Osuna MD REQ: [id number] RECD: 05/12/19 STATUS: DIANNA MASON DR: Vonnie Bunch DO _ SOURCE: URINE SPDESC: ORDERED: Urine Culture Procedure Result Reported Site Urine Culture Final 05/13/19- 1131 ML No growth of clinically significant organisms * - Main Lab . END OF REPORT DEPARTMENT OF PATHOLOGY, [address] [place] [address] Vaibhav Logan M.D. Director [facility] # [id number] Procedures Description No Information Available Medical Devices Description No Information Available Encounters Type Date Location Provider Dx Diagnosis Office Visit 07/27/2019 [facility] Jack Bunch, DO F31.9 Bipolar disorder, 8:45a unspecified Z11.3 Encntr screen for infections w sexl mode of transmiss Z11.4 Encounter for screening for human immunodeficiency virus M25.562 Pain in left knee M25.561 Pain in right knee Office Visit 02/05/2019 9:15a [facility] Jack Bunch, F31.9 Bipolar disorder, DO unspecified M25.562 Pain in left knee M25.561 Pain in right knee Z68.25 Body mass index (BMI) 25.0-25.9, adult Assessments Date Code Description Provider 07/27/2019 F31.9 Bipolar disorder, unspecified Vonnie Galavizw, DO 07/27/2019 Z11.3 Encounter for screening for infections with a Vonnie Bunch, DO predominantly sexual mode of transmission 07/27/2019 Z11.4 Encounter for screening for human Vonnie Bunch, DO immunodeficiency virus [HIV] 07/27/2019 M25.562 Pain in left knee Vonnie Darrellnow, DO 07/27/2019 M25.561 Pain in right knee Vonnie Darrellnow, DO 02/05/2019 F31.9 Bipolar disorder, unspecified Vonnie Darrellnow, DO 02/05/2019 M25.562 Pain in left knee Vonnie Karnow, DO 02/05/2019 M25.561 Pain in right knee Vonnie Karnow, DO 02/05/2019 Z68.25 Body mass index (BMI) 25.0-25.9, adult Vonnie Bunch, Plan of Treatment 07/27/2019 - Vonnie Bunch, DOF31.9 Bipolar disorder, unspecifiedComments: Stable since recent hospitalization Med management is per psychI reviewed her hospital summary and discharge med list - her Lamotrigine was increased to 100mg BID but she is only taking 150mg once daily and feels this is enough - has visit with pyschiatrist in a few weeks and will further discussOhtermeds refilled as she will be out before the psych visit occursShe is continuing regular therapy She is avoiding MJ as seems to exacerbate thingsDiscussed her weight loss, which seems to be due to increased exercise and healthier eating choices We will follow up in 3 months, sooner if ligsqbJ00.3 Encounter for screening for infections with a predominantly sexual mode of transmissionComments:Labs ordered at patient's requestShe does not have lsjlccbiI75.4 Encounter for screening for human immunodeficiency virus [HIV] M25.562 Pain in left kneeComments:Bilateral knee pain improved with PT and then regular exercising and stretching Continue current regimen of care for thisM25.561 Pain in right kneeAllNew Medication:Seroquel 300 mg - 1 tab by mouth every day at bedtimeComments:The above services were appropriate to provide in a Telemedicine setting. Functional Status Description No Information Available Mental Status Description No Information Available Referrals Description No Information Available
--- OUTSIDE RECORDS SUMMARY | 2019-08-16 19:41 | XMS REPORT | Continuity of Care Document ---
:1995 External Reference #:[id number] Author Name Vonnie Bunch, DO Address [address] [place] [id number] Problems Active Problems Provider Date Eczema Onset: 07/02/2018 Vitamin D deficiency Onset: 07/02/2018 Allergic rhinitis Onset: 07/02/2018 Social History Type Date Description Comments Sex Unknown Allergies, Adverse Reactions, Alerts Active Allergies Reaction Severity Comments Date Melons Lip swelling 01/01/2019 Medications Active Medications SIG Qnty Indications Ordering Provider Date Seroquel 300MG 1 tab by mouth Unknown 05/17/2019 every day at bedtime Propranolol HCL 1 twice a day as 60tabs Vonnie Bunch, 05/17/2019 20mg needed DO Tablets Quetiapine Fumarate Take One Tablet 30tabs Vonnie Bunch, 12/07/2018 By Mouth AT DO 100mg Tablets Bedtime Naproxen 1 twice daily 60tabs Unknown 11/03/2018 500mg Tablets Oral Fluticasone 2 sprays daily 16units Unknown 08/28/2018 Propionate Nasal 50mcg/Act Suspension Triamcinolone Apply twice 1units Unknown 08/28/2018 Acetonide daily prn 0.5% Cream External Multiple Vitamin 1 daily Oral 30tabs Unknown 07/02/2018 Tablets Proventil HFA Inhalation; 2 1units Unknown 07/02/2018 puffs Q 4h prn 108(90Base) mcg/Act Aerosol Lamixil 25MG 1 tab by mouth Unknown every day at bedtime Immunizations CPT Code Status Date Vaccine Lot # [id number] Given 2018 Influenza Virus Vaccine, Quadrivalent, Split, Im Use 0.25ML 65213 Given 2018 Influenza Virus Vaccine, Quadrivalent, Split, Im Use 0.25ML 50687 Given 2018 Influenza Virus Vaccine, Quadrivalent, Split, Im Use 0.25ML 12087 Given 2018 Flu < 65 years 76365 Given 2018 Influenza Virus Vaccine, Quadrivalent, Split, Preservative Free 18226 Given 2018 Flumist 78293 Given 2018 Flu High Dose 27895 Given 2018 Influenza Virus Vaccine, Split, Preserv Free, Intradermal Use Vital Signs Date Vital Result Comment 02/05/2019 9:22am BP Systolic 110 mmHg BP Diastolic 60 mmHg Height 68.5 inches 5'8.50" Weight 173.00 lb Heart Rate 80 /min Body Temperature 96.8 F O2 % BldC Oximetry 98 % BMI (Body Mass Index) 25.9 kg/m2 12/03/2018 9:44am BP Systolic 114 mmHg Weight 181.00 lb Heart Rate 74 /min Body Temperature 97.8 F O2 % BldC Oximetry 99 % Results Test Acquired Date Facility Test Result H/L Range Note CBC Auto 07/13/2019 [facility] White Blood 5.8 10^3/uL Normal 3.5-10.[address] [place], [place] [id number] [phone] Red Blood Count 4.27 10^6/uL Normal 3.70-4.87 [...] Blood Cells % 0.0 Comp Metabolic 07/13/2019 [facility] Sodium 139 mmol/L Normal 135-[address] [place] [address] [phone] Potassium 3.8 mmol/L Normal 3.5-5.0 Chloride 104 [...] 63.9 >60 1 Laboratory test finding 07/13/2019 [facility] Alcohol 12 mg/dL High <[address] [place] [address] [phone] Salicylate < 2.50 mg/dL <30 Acetaminophen < 15 g/mL 2 TSH (Thyroid Stim Horm) 1.79 mcIU/mL Normal 0.34-5.60 CBC Auto 05/11/2019 [facility] White Blood 5.6 10^3/uL Normal 3.5-10.[address] [place] [address] [phone] Red Blood Count 4.11 10^6/uL Normal 3.70-4.87 [...] Blood Cells % 0.0 Comp Metabolic 05/11/2019 [facility] Sodium 139 mmol/L Normal 135-145 Panel [address] [place] [address] [phone] Potassium 3.7 mmol/L Normal 3.5-5.0 Chloride 106 [...] Egfr Non- 71.1 >60 Egfr 86.0 >60 3 Laboratory 05/11/2019 [facility] TSH (Thyroid 1.06 Normal 0.34 -5.[address] Stim Horm) mcIU/[place] [address] [phone] Acetaminophen < 15 g/mL 4 Alcohol < 10 mg/dL Normal <10 Salicylate < 2.50 mg/dL <30 Urinalysis Profile 05/11/2019 [facility] Urine Color Yellow [address] [place], [place] [address] [phone] Urine Appearance Cloudy Urine Specific [place] 1.013 Normal 1.010-1.030 Urine pH 6.0 Normal [...] Cell Present Abnormal Absent Urine Drug 05/11/2019 [facility] Urine None Detected None Detect SCR ED & [address] A[place] [place] [address] Screen [phone] Urine Barbiturates Screen None Detected None Detect Urine Benzodiazepine Screen None Detected None Detect Urine Cannabinoids Screen Presumptive Posi <SEE NOTE> Abnormal None Detect 5 Urine Cocaine Screen None Detected None Detect Urine Opiates Screen None Detected None Detect Urine Phencyclidine Screen None Detected None Detect 6 Urine Culture And 05/11/2019 [facility] Urine Culture SEE RESULT [address] [place] [address] [phone] Order 02/05/2019 [facility] <pending> Therapy [...] <50 ug/mL Toxic concentration: >120 ug/mL 3 Because ethnic data is not always [...] be used for medical purposes only. 7 SEE RESULT BELOW Name: ROCHELLECHRIS : [address]: Edson Melton MD Acct: [id number] Unit: [id number] AGE: 24 Location: [place] [address]- Re05/12/19 SEX: F Status: ADM IN SPEC: [id number] ALFRED: 05/12/19-[address]: Benji Osuna MD REQ: [id number] RECD: 05/12/190136 STATUS: COMP MARLON DR: Vonnie Bunch DO _ SOURCE: URINE SPDESC: ORDERED: Urine Culture Procedure Result Reported Site Urine Culture Final 05/13/19- 1131 ML No growth of clinically significant organisms * ML - Main Lab . END OF REPORT DEPARTMENT OF PATHOLOGY, [address] [place] [address] Vaibhav Logan M.D. Director [facility] # [id number] Procedures Description No Information Available Medical Devices Description No Information Available Encounters Type Date Location Provider Dx Diagnosis Office Visit 02/05/2019 [facility] Main Vonnie Bunch, DO F31.9 Bipolar disorder, 9:15a unspecified M25.562 Pain in left knee M25.561 Pain in right knee Z68.25 Body mass index (BMI) 25.0-25.9, adult Assessments Date Code Description Provider 02/05/2019 F31.9 Bipolar disorder, unspecified Vonnie Galavizw, DO 02/05/2019 M25.562 Pain in left knee Vonnie Darrellmerariw, DO 02/05/2019 M25.561 Pain in right knee Vonnie Bunch DO 02/05/2019 Z68.25 Body mass index (BMI) 25.0-25.9, adult Vonnie Bunch DO Plan of Treatment Future Appointment(s):07/27/2019 8:45 am - Vonnie Bunch, DO at [facility] Main02/2019 - Vonnie Bunch, DOF31.9 Bipolar disorder, unspecifiedComments:Doing well overallWe discussed that sometimes worth not changing everything when things are going ok(referring to her thinking of changing jobs)Reasonable for FMLA to allow her to have up to 2 days per month to address her illness - I will fill out paperwork Continue SeroquelContinue regular therapy Follow up 2 months or sooner if [id number] Pain in left kneeComments:Bilateral knee pain Plan is PT Ice, Naproxen, etcIf no improvement in 8 weeks, then [id number] Pain in right kneeZ68.25 Body mass index (BMI) 25.0-25.9, adultAllComments:> 25min visit with more than 50% of the time spent counseling Functional Status Description No Information Available Mental Status Description No Information Available Referrals Description No Information Available
--- OUTSIDE RECORDS SUMMARY | 2019-08-16 19:41 | XMS REPORT | Continuity of Care Document ---
:1995 External Reference #:[id number] Author Name Vonnie Bunch, DO Address [address] [place] [phone] Problems Active Problems Provider Date Eczema Onset: [...] CPT Code Status Date Vaccine Lot # [id number] Given 2018 Influenza Virus Vaccine, Quadrivalent, Split, Im Use 0.25ML 89257 Given 2018 Influenza Virus Vaccine, Quadrivalent, Split, Im Use 0.25ML 46663 Given 2018 Influenza Virus Vaccine, Quadrivalent, Split, Im Use 0.25ML 95624 Given 2018 Flu < 65 years 96729 Given 2018 Influenza Virus Vaccine, Quadrivalent, Split, Preservative Free 10046 Given 2018 Flumist 38702 Given 2018 Flu High Dose 86884 Given 2018 Influenza Virus Vaccine, Split, Preserv [...] Result H/L Range Note CBC Auto 07/13/2019 [facility] White Blood 5.8 10^3/uL Normal 3.5-10.[address] [place], [place] [address] [phone] Red Blood Count 4.27 10^6/uL Normal 3.70-4.87 [...] Blood Cells % 0.0 Comp Metabolic 07/13/2019 [facility] Sodium 139 mmol/L Normal 135-145 Panel [address] [place], [place] [address] [phone] Potassium 3.8 mmol/L Normal 3.5-5.0 Chloride 104 [...] 63.9 >60 1 Laboratory test finding 07/13/2019 [facility] Alcohol 12 mg/dL High <10 [address] [place], [place] [address] [phone] Salicylate < 2.50 mg/dL <30 Acetaminophen < 15 g/mL 2 TSH (Thyroid Stim Horm) 1.79 mcIU/mL Normal 0.34-5.60 Urinalysis Profile 07/13/2019 [facility] Urine Color Yellow [address] [place], [place] [address] [phone] Urine Appearance Clear Urine Specific [place] 1.016 Normal 1.010-1.030 Urine pH 6.0 Normal 5-9 Urine Urobilinogen Negative Negative Urine Ketones Negative Negative Urine Protein Negative Negative Urine Leukocytes Negative Negative Urine Blood Negative Negative Urine Nitrite Negative Negative Urine Bilirubin Negative Negative Urine Glucose Negative Negative Urine Drug 07/13/2019 [facility] Urine None Detected None Detect SCR ED & 201 [facility] [address] Screen [phone] Urine Barbiturates Screen None Detected None Detect Urine Benzodiazepine Screen None Detected None Detect Urine Cannabinoids Screen Presumptive Posi <SEE NOTE> Abnormal None Detect 3 Urine Cocaine Screen None Detected None Detect Urine Opiates Screen None Detected None Detect Urine Phencyclidine Screen None Detected None Detect 4 Laboratory test 07/13/2019 [facility] HCG < 0.60 [address] mIU/[place] [address] [phone] CBC Auto Diff 05/11/2019 [facility] White Blood 5.6 10^3/uL Normal 3.5-[address] Count [address].8 [place] [address] [phone] Red Blood Count 4.11 10^6/uL Normal 3.70-4.87 [...] Blood Cells % 0.0 Comp Metabolic 05/11/2019 [facility] Sodium 139 mmol/L Normal 135-[address] [place] [address] [phone] Potassium 3.7 mmol/L Normal 3.5-5.0 Chloride 106 [...] >60 Egfr 86.0 >60 6 Laboratory 05/11/2019 [facility] TSH (Thyroid 1.06 Normal 0.34 -5.60 test finding [address] Stim Horm) mcIU/mL [place], [place] [address] [phone] Acetaminophen < 15 g/mL 7 Alcohol < 10 mg/dL Normal <10 Salicylate < 2.50 mg/dL <30 Urinalysis Profile 05/11/2019 [facility] Urine Color Yellow [address] [place], [place] [address] [phone] Urine Appearance Cloudy Urine Specific [place] 1.013 Normal 1.010-1.030 Urine pH 6.0 Normal [...] Cell Present Abnormal Absent Urine Drug 05/11/2019 [facility] Urine None Detected None Detect SCR ED & [address] [facility] [place] [address] Screen [phone] Urine Barbiturates Screen None Detected None Detect Urine Benzodiazepine Screen None Detected None Detect Urine Cannabinoids Screen Presumptive Posi <SEE NOTE> Abnormal None Detect 8 Urine Cocaine Screen None Detected None Detect Urine Opiates Screen None Detected None Detect Urine Phencyclidine Screen None Detected None Detect 9 Urine Culture And 05/11/2019 [facility] Urine Culture SEE RESULT [address] [place], [place] [address] [phone] Order 02/05/2019 [facility] <pending> Therapy [...] only. 10 SEE RESULT BELOW Name: CHRIS RIVERA : [address]: Edson Melton MD Acct: [id number] Unit: [id number] AGE: 24 Location: [address] Re05/12/19 SEX: F Status: ADM IN SPEC: [id number] ALFRED: 05/12/19-[address] [facility] [address]: Benji Osuna MD REQ: [id number] RECD: 05/12/19 STATUS: DIANNA MASON DR: Vonnie Bunch DO _ SOURCE: URINE SPDESC: ORDERED: Urine Culture Procedure Result Reported Site Urine Culture Final 05/13/19- 1131 ML No growth of clinically significant organisms * ML - Main Lab . END OF REPORT DEPARTMENT OF PATHOLOGY, [address] [place] [address] Vaibhav Logan M.D. Director [facility] # [id number] Procedures Description No Information Available Medical Devices Description No Information Available Encounters Type Date Location Provider Dx Diagnosis Office Visit 02/05/2019 [facility] Vonnie Bunch DO F31.9 Bipolar disorder, 9:15a unspecified M25.562 Pain in left knee M25.561 Pain in right knee Z68.25 Body mass index (BMI) 25.0-25.9, adult Assessments Date Code Description Provider 02/05/2019 F31.9 Bipolar disorder, unspecified Vonnie Bunch, 02/05/2019 M25.562 Pain in left knee Vonnie Bunch, DO 02/05/2019 M25.561 Pain in right knee Vonnie Bunch, DO 02/05/2019 Z68.25 Body mass index (BMI) 25.0-25.9, adult Vonnie Bunch DO Plan of Treatment Future Appointment(s):07/27/2019 8:45 am - Vonnie Bunch DO at [facility]02/2019 - Vonnie Bunch DOF31.9 Bipolar disorder, unspecifiedComments:Doing well overallWe discussed that sometimes worth not changing everything when things are going ok(referring to her thinking of changing jobs)[place]able for [place] to allow her to have up to 2 days per month to address her illness - I will fill out paperwork Continue SeroquelContinue regular therapy Follow up 2 months or sooner if [id number] Pain in left kneeComments:Bilateral knee pain Plan is PT Ice, Naproxen, etcIf no improvement in 8 weeks, then [id number] Pain in right kneeZ68.25 Body mass index (BMI) 25.0-25.9, adultAllComments:> 25min visit with more than 50% of the time spent counseling Functional Status Description No Information Available Mental Status Description No Information Available Referrals Description No Information Available
--- OUTSIDE RECORDS SUMMARY | 2019-08-16 19:41 | XMS REPORT | Continuity of Care Document ---
:1995 External Reference #:[id number] Author Name Vonnie Bunch, DO Address [address] [place] [id number] Problems Active Problems Provider Date Eczema Onset: [...] CPT Code Status Date Vaccine Lot # [id number] Given 2018 Influenza Virus Vaccine, Quadrivalent, Split, Im Use 0.25ML 54982 Given 2018 Influenza Virus Vaccine, Quadrivalent, Split, Im Use 0.25ML 93766 Given 2018 Influenza Virus Vaccine, Quadrivalent, Split, Im Use 0.25ML 86055 Given 2018 Flu < 65 years 92053 Given 2018 Influenza Virus Vaccine, Quadrivalent, Split, Preservative Free 75185 Given 2018 Flumist 47472 Given 2018 Flu High Dose 34671 Given 2018 Influenza Virus Vaccine, Split, Preserv [...] Result H/L Range Note CBC Auto 07/13/2019 [facility] White Blood 5.8 10^3/uL Normal 3.5-10.[address] [place], [place] [address] [phone] Red Blood Count 4.27 10^6/uL Normal 3.70-4.87 [...] Blood Cells % 0.0 Comp Metabolic 07/13/2019 [facility] Sodium 139 mmol/L Normal 135-145 Panel [address] [place], [place] [address] [phone] Potassium 3.8 mmol/L Normal 3.5-5.0 Chloride 104 [...] 63.9 >60 1 Laboratory test finding 07/13/2019 [facility] Alcohol 12 mg/dL High <10 [address] [place], [place] [address] [phone] Salicylate < 2.50 mg/dL <30 Acetaminophen < 15 g/mL 2 TSH (Thyroid Stim Horm) 1.79 mcIU/mL Normal 0.34-5.60 Urinalysis Profile 07/13/2019 [facility] Urine Color Yellow [address] [place], [place] [address] [phone] Urine Appearance Clear Urine Specific [place] 1.016 Normal 1.010-1.030 Urine pH 6.0 Normal 5-9 Urine Urobilinogen Negative Negative Urine Ketones Negative Negative Urine Protein Negative Negative Urine Leukocytes Negative Negative Urine Blood Negative Negative Urine Nitrite Negative Negative Urine Bilirubin Negative Negative Urine Glucose Negative Negative Urine Drug 07/13/2019 [facility] Urine None Detected None Detect SCR ED & 201 [facility] [place] [address] Screen [phone] Urine Barbiturates Screen None Detected None Detect Urine Benzodiazepine Screen None Detected None Detect Urine Cannabinoids Screen Presumptive Posi <SEE NOTE> Abnormal None Detect 3 Urine Cocaine Screen None Detected None Detect Urine Opiates Screen None Detected None Detect Urine Phencyclidine Screen None Detected None Detect 4 CBC Auto 05/11/2019 [facility] White Blood 5.6 10^3/uL Normal 3.5-10.[address] [place] [address] [phone] Red Blood Count 4.11 10^6/uL Normal 3.70-4.87 [...] Blood Cells % 0.0 Comp Metabolic 05/11/2019 [facility] Sodium 139 mmol/L Normal 135-[address] [place] [address] [phone] Potassium 3.7 mmol/L Normal 3.5-5.0 Chloride 106 [...] Egfr Non- 71.1 >60 Egfr 86.0 >60 5 Laboratory 05/11/2019 [facility] TSH (Thyroid 1.06 Normal 0.34 -5.60 test finding [address] Stim Horm) mcIU/mL [place], [place] [address] [phone] Acetaminophen < 15 g/mL 6 Alcohol < 10 mg/dL Normal <10 Salicylate < 2.50 mg/dL <30 Urinalysis Profile 05/11/2019 [facility] Urine Color Yellow [address] [place] [address] [phone] Urine Appearance Cloudy Urine Specific [place] 1.013 Normal 1.010-1.030 Urine pH 6.0 Normal [...] Cell Present Abnormal Absent Urine Drug 05/11/2019 [facility] Urine None Detected None Detect SCR ED & [address] [place] [address] Screen [phone] Urine Barbiturates Screen None Detected None Detect Urine Benzodiazepine Screen None Detected None Detect Urine Cannabinoids Screen Presumptive Posi <SEE NOTE> Abnormal None Detect 7 Urine Cocaine Screen None Detected None Detect Urine Opiates Screen None Detected None Detect Urine Phencyclidine Screen None Detected None Detect 8 Urine Culture And 05/11/2019 [facility] Urine Culture SEE RESULT [address] [place] [address] [phone] Order 02/05/2019 [facility] <pending> Therapy [...] be used for medical purposes only. 5 Because ethnic data is not always readily [...] 15-29 5 Kidney failure <15 (or dialysis) 6 Therapeutic concentration: <50 ug/mL Toxic concentration: >120 ug/mL 7 Presumptive Positive Presumptive positive results are unconfirmed. 8 The urine specimen was tested at the listed cutoffs: Drug class test level (ng/mL) Amphetamines 500 Barbiturates 200 Benzodiazepine metabolites 200 Cocaine metabolites 150 Cannabinoids 50 Opiates 300 Pcp 25 Specimen was received without chain of custody. Results should be used for medical purposes only. 9 SEE RESULT BELOW Name: CHRIS RIVERA : [address]: Edson Melton MD Acct: [id number] Unit: [id number] AGE: 24 Location: [facility] Re05/12/19 SEX: F Status: ADM IN SPEC: [id number] ALFRED: 05/12/[address]: Benji Osuna MD REQ: [id number] RECD: 05/12/19 STATUS: DIANNA MASON DR: Vonnie Bunch DO _ SOURCE: URINE SPDESC: ORDERED: Urine Culture Procedure Result Reported Site Urine Culture Final 05/13/19- 1131 ML No growth of clinically significant organisms * - [facility] . END OF REPORT DEPARTMENT OF PATHOLOGY, [address] [place] [address] Vaibhav Logan M.D. Director [facility] # [id number] Procedures Description No Information Available Medical Devices Description No Information Available Encounters Type Date Location Provider Dx Diagnosis Office Visit 02/05/2019 [facility] Vonnie Bunch DO F31.9 Bipolar disorder, 9:15a unspecified M25.562 Pain in left knee M25.561 Pain in right knee Z68.25 Body mass index (BMI) 25.0-25.9, adult Assessments Date Code Description Provider 02/05/2019 F31.9 Bipolar disorder, unspecified Vonnie Bunch, DO 02/05/2019 M25.562 Pain in left knee Vonnie Bunch, DO 02/05/2019 M25.561 Pain in right knee Vonnie Bunch, DO 02/05/2019 Z68.25 Body mass index (BMI) 25.0-25.9, adult Vonnie Bunch DO Plan of Treatment Future Appointment(s):07/27/2019 8:45 am - Vonnie Bunch DO at [facility]02/2019 - Vonnie Bunch DOF31.9 Bipolar disorder, unspecifiedComments:Doing well overallWe discussed that sometimes worth not changing everything when things are going ok(referring to her thinking of changing jobs)Reasonable for FMLA to allow her to have up to 2 days per month to address her illness - I will fill out paperwork Continue SeroquelContinue regular therapy Follow up 2 months or sooner if [id number] Pain in left kneeComments:Bilateral knee pain Plan is PT Ice, Naproxen, etcIf no improvement in 8 weeks, then [id number] Pain in right kneeZ68.25 Body mass index (BMI) 25.0-25.9, adultAllComments:> 25min visit with more than 50% of the time spent counseling Functional Status Description No Information Available Mental Status Description No Information Available Referrals Description No Information Available
[2019-08-16] MEDS ORDERED: Tetan/Diph/Pertus SYR(Tdap)* 0.5 ML SYR(BOOSTRIX) use SYR contains LATEX IM ONE (19:51)
[2019-08-16 19:53] VITALS: BP 139/78
[2019-08-16] MEDS ORDERED: Lidocaine 1% MPF ** 5 ML VIAL INJ ONE (20:00)
[2019-08-16] MEDS ORDERED: Naproxen TAB* 250 MG PO ONE (20:11)
[2019-08-16] MEDS ORDERED: Amoxicillin/Clavulanate TAB* 875 MG PO ONE (20:11)
--- NOTE | 2019-08-16 20:11 | UC ---
Bite Injury/Animal HPI - HPI Summary HPI Summary: 24 y/o female presents to the urgent care c/o left hand dog bite between her left 4th and 5th finger around 1 hrs ago. Pt reports she was running and she startle her neighbor's dog and the dog bit her left hand. Pt reports she went home and irrigated wound well with water and applied pressure. Pain now is 1/10 and touch and she can move her finger w/o any difficulty. But wound still bleeding. She states the dog is UTD with all immunization and her neighbor just send her a copy of the dog;s immunization and it is UTD. Pt can't remember when was the last tetanus vaccine given. Pt denies fever, SOB, cough, sick contacts, chest pain, numbness or tingling sensation over the left hand or finger, abdominal pain, N/V/D. - History of Current Complaint Chief Complaint: UCBiteInjury Stated Complaint: DOG BITE Time Seen by Provider: 08/16/19 19:50 Hx Obtained From: Patient Hx Last Menstrual Period: iud ?: No Severity Currently: Moderate Severity Initially: Moderate Pain Intensity: 1 - at touch Pain Scale Used: 0-10 Numeric Onset/Duration: Sudden Onset, Lasting Hours - 1 hr Type of Bite: Pet - dog bite Has Animal Been Immunized?: Yes Character: Puncture - laceration Aggravating Factor(s): Other - touch and movement Alleviating Factor(s): Rest Associated Signs And Symptoms: Positive: Negative. Negative: Drainage, Swelling , Numbness/Tingling Hx of Bite: Provoked by: - Pt was running and she startle the dog Animal Available for Observation: Yes Animal Control Notified: No - Risk Factors Infection/Sepsis Risk Factors: Negative - Allergies/Home Medications Allergies/Adverse Reactions: Allergies Allergy/AdvReac Type Severity Reaction Status Date / Time No Known Allergies Allergy Verified 08/16/19 19:44 Home Medications: Home Medications Multivitamins/Minerals TAB* [Theragran/minerals TAB*] 1 tab PO DAILY 06/15/18 [ History Confirmed 08/16/19] Cetirizine* [ZyrTEC 10 MG TAB*] 10 mg PO DAILY tab 07/15/19 [Rx Confirmed 08/15] Prazosin 1 mg CAP [Minipress 1 mg CAP] 1 mg PO BEDTIME #21 cap 07/15/19 [Rx Confirmed 08/16/19] Propranolol 20 mg TAB [Inderal 20 mg TAB] 20 mg PO BID PRN tab 07/15/19 [Rx Confirmed 08/16/19] QUEtiapine TAB* [Seroquel 300 MG TAB*] 300 mg PO BEDTIME tab 07/15/19 [Rx Confirmed 08/16/19] Amoxicillin/Clavulanate TAB* [Augmentin TAB 875*] 875 mg PO BID #19 tab [Rx] Bacitracin OINTMENT* 1 applic TOPICAL BID #1 tube 08/16/19 [Rx] lamoTRIgine TAB(*) [Lamictal TAB(*)] 150 mg PO QPM 08/16/19 [History Confirmed 08/16/19] PMH/Surg Hx/FS Hx/Imm Hx Previously Healthy: Yes Psychological History: Depression, Bipolar Disorder - Surgical History Surgical History: None Surgery Procedure, Year, and Place: none - Family History Known Family History: Positive: Hypertension, Respiratory Disease - asthma Family History: bipolar disorder - Social History Occupation: Employed Full-time Lives: With Family Alcohol Use: None Alcohol Amount: " too much for my liver to handle. At least 4 drinks a night when I drink Substance Use Type: None Substance Use Comment - Amount & Last Used: 2 days ago Smoking Status (MU): Never Smoked Tobacco - Immunization History Most Recent Influenza Vaccination: Jan 2018 Most Recent Tetanus Shot: unknown Most Recent Pneumonia Vaccination: never Hx Tetanus, Diphtheria Vaccination: No - unknown Review of Systems All Other Systems Reviewed And Are Negative: Yes Constitutional: Positive: Negative Skin: Positive: Other - dog bite on dorsal side of left hand about 1hr ago by neighbor's dog Eyes: Positive: Negative ENT: Positive: Negative Respiratory: Positive: Negative Cardiovascular: Positive: Negative Gastrointestinal: Positive: Negative Genitourinary: Positive: Negative Motor: Positive: Negative Neurovascular: Positive: Negative Musculoskeletal: Positive: Decreased ROM - pinky and ring finger, Other: - left dorsal hand pain s/p doig bite Physical Exam - Summary Physical Exam Summary: Vital Signs Reviewed: Yes General: well developed, well nourished female sitting in the examining table w/ o any apparent distress Eye Exam: Normal Eyes: Positive: Conjunctiva Clear - PERRLA, EOMI, fundi grossly normal ENT: Positive: Normal ENT inspection, Hearing grossly normal, Pharynx normal, TMs normal Neck: Positive: Supple, Nontender, No Lymphadenopathy Respiratory: Positive: Chest non-tender, Lungs clear, Normal breath sounds, No respiratory distress Cardiovascular: Positive: RRR, No Murmur, Pulses Normal, Brisk Capillary Refill Abdomen Description: Positive: Nontender, No Organomegaly, Soft. Negative: CVA Tenderness (R), CVA Tenderness (L) Bowel Sounds: Positive: Present Musculoskeletal: Positive: Strength Intact, ROM Intact, No Edema Neurological: Positive: Alert, Muscle Tone Normal Psychological Exam: Normal Skin: Positive: Dorsal side of the left hand between 4th and 5th finger with a linear puncture laceration about 1.2 cm x 0.8cm in size, bleeding, no foreign body observed. mild tenderness to palpation, no ecchymosis around elbow. FROM of Left hand and all fingers, sensation intact, capillary refill brisk, and pulses WNL. Triage Information Reviewed: Yes Vital Signs: Initial Vital Signs Temp 98.7 F 08/16/19 19:52 Pulse 95 08/16/19 19:52 Resp 16 08/16/19 19:52 BP 139/78 08/16/19 19:52 Pulse Ox 100 08/16/19 19:52 Bite Injury Course/Dx - Course Course Of Treatment: 24 y/o female presents to the urgent care c/o left hand dog bite between her left 4th and 5th finger around 1 hrs ago. Pt reports she was running and she startle her neighbor's dog and the dog bit her left hand. Pt reports she went home and irrigated wound well with water and applied pressure. Pain now is 1/10 and touch and she can move her finger w/o any difficulty. But wound still bleeding. She states the dog is UTD with all immunization and her neighbor just send her a copy of the dog;s immunization and it is UTD. Pt can't remember when was the last tetanus vaccine given. Pt denies fever, SOB, cough, sick contacts, chest pain, numbness or tingling sensation over the left hand or finger, abdominal pain, N/V/D. Hx obtained. Positive:Dorsal side of LF hand between 4th and 5th finger w/ a linear puncture wound s/p dog bite about 1.2cm x 0.8 cm in size, bleeding, no foreign body observed. mild tenderness to palpation, FROM of LF hand and LF fingers, sensation intact, capillary refill brisk, and pulses WNL on examination. Copious irrigation was done with saline and soap, also w/ iodine. LF hand X- ray ordered to r/o any abnormality or FB; Impression. No acute osseous injury, FB observed as per DR Reno. Final radiology will be done tomorrow. Pt will be notified of any abnormality for further management. Approximation of wound is needed. LACERATION PROCEDURE NOTE: procedure was explained and consent obtained , Timeout performed. The wound was anesthetized with 2 mL of 1% lido with good anesthesia. Sterile drape and prep were done. 1 sutures with 5.0 Prolene was placed to approximate wound.. The length of the wound after approximation closure was 1.0cm. No debridement done. Pt tolerated the procedure well without adverse effects. Neurovascular intact and FROM of all LF fingers and hand. Tdap ordered and applied by nurse. Pt given first dose of Augmentin PO and Naproxen PO for pain given by nurse. Pt tolerated well medication and procedure. Pain decrease. Bacitracin topical oint applied over the wound. Pt Rx Augmentin and Bacitrain oint as directed below. Pt advised to apply ice , elevate her hand, and f/u tomorrow with her PCP or here at the urgent care for wound re-check to make sure wound is improving. Also advised to f/u suture removal in 10 day. Also highly recommended close observation to dog' s behavior and notify the Health department to fax dog's immunization records and make sure she doesn't need the rabies prophylactic vaccination. D/C instructions explained. Pt understood and agreed and left the clinic ambulating A&Ox3. - Differential Dx/Diagnosis Differential Diagnosis/HQI/PQRI: Cellulitis, Crush Injury, Fracture, Laceration , Puncture, Rabies Exposure, Superficial Infection, Deep Space Infection, Tenosynovitis, Other - dog bite Provider Diagnosis: Dog bite of left hand Discharge ED - Sign-Out/Discharge Documenting (check all that apply): Patient Departure - D/C home All imaging exams completed and their final reports reviewed: No - Discharge Plan Condition: Stable Disposition: HOME Prescriptions: Amoxicillin/Clavulanate TAB* [Augmentin TAB 875*] 875 mg PO BID #19 tab Bacitracin OINTMENT* 1 applic TOPICAL BID #1 tube Patient Education Materials: Animal Bite (ED) Referrals: Vonnie Bunch [Primary Care Provider] - 1 Day Additional Instructions: 1- Please take Augmentin PO as directed. Please take yogurts with brobiotics or culturelle to protect your GI system 2-Please apply Bacitracin topical antibiotic over the wound. Keep wound clean and dry. 3- You were given a booster of Tetanus vaccine today 3- Continue Taken Naproxen Po q12hrs after meals for pain or swelling. Apply ice and elevate your hand to decrease swelling. Avoid repetitive motions or heavy lifting. 4- Please f/u for wound check tomorrow to make sure wound is improving. F/u suture removal in 10 days. If you develop fever or redness around your hand despite taking antibiotic please return to the Urgent care or f/u w/ your PCP for further evaluation and treatment 5- Please close observation w/ dog's behavior. Please Contact the health department to let them kno dog's immunization records and confirm there is not need for rabies prophylactic treatment. 6- You were given Tdap vaccine booster today 7- left hand X-hand final radiology reports still pending you will be notified tomorrow of any abnormal result for further management. - Billing Disposition and Condition Condition: STABLE Disposition: Home
--- NOTE | 2019-08-17 08:55 | UC ---
- Progress Note Progress Note: Final radiologist reading of left hand x-ray from August 16, 2019 comes back as no fracture or radiopaque foreign body. Provider interpretation same date was the same therefore there is no discrepancy. Course/Dx - Diagnoses Provider Diagnoses: Dog bite of left hand Discharge ED - Sign-Out/Discharge Documenting (check all that apply): Patient Departure All imaging exams completed and their final reports reviewed: Yes - Discharge Plan Condition: Stable Disposition: HOME Prescriptions: Amoxicillin/Clavulanate TAB* [Augmentin TAB 875*] 875 mg PO BID #19 tab Bacitracin OINTMENT* 1 applic TOPICAL BID #1 tube Patient Education Materials: Animal Bite (ED) Referrals: Vonnie Bunch DO [Primary Care Provider] - 1 Day Additional Instructions: 1- Please take Augmentin PO as directed. Please take yogurts with brobiotics or culturelle to protect your GI system 2-Please apply Bacitracin topical antibiotic over the wound. Keep wound clean and dry. 3- You were given a booster of Tetanus vaccine today 3- Continue Taken Naproxen Po q12hrs after meals for pain or swelling. Apply ice and elevate your hand to decrease swelling. Avoid repetitive motions or heavy lifting. 4- Please f/u for wound check tomorrow to make sure wound is improving. F/u suture removal in 10 days. If you develop fever or redness around your hand despite taking antibiotic please return to the Urgent care or f/u w/ your PCP for further evaluation and treatment 5- Please close observation w/ dog's behavior. Please Contact the health department to let them kno dog's immunization records and confirm there is not need for rabies prophylactic treatment. 6- You were given Tdap vaccine booster today 7- left hand X-hand final radiology reports still pending you will be notified tomorrow of any abnormal result for further management. - Billing Disposition and Condition Condition: STABLE Disposition: Home
== END 2019-08-16 20:50 | disposition home or self-care (01) ==
LOC: UCEAST 19:35
DX: S61.432A Puncture wound without foreign body of left hand, initial encounter (principal); W54.0XXA Bitten by dog, initial encounter; Y93.02 Activity, running; Y92.9 Unspecified place or not applicable; Z23 Encounter for immunization; F31.9 Bipolar disorder, unspecified; Z79.899 Other long term (current) drug therapy
CPT/HCPCS: 12001; 90471; 90715; 99212; A9270-GY; G0463